=== PATIENT | male | born 2000 | race Caucasian/White ===

== ENCOUNTER 2023-04-24 21:52 | Emergency (ER) | payer OTHER, SELFPAY ==
--- NOTE | ~2023-04-24 | XR_ITS ---
EXAMINATION: XR HAND, RIGHT CLINICAL INFORMATION: Injury COMPARISON: None available. TECHNIQUE: PA, lateral, and oblique views of the right hand. FINDINGS: There is a nondisplaced fracture involving the base of the fifth metacarpal. The fracture does not appear to involve the joint space. The bones and soft tissues are otherwise unremarkable. No additional fracture. Alignment is anatomic. Joint spaces are maintained. No erosions or soft tissue calcifications. XR/XR hand RT 2V IMPRESSION: Nondisplaced fracture involving the base of the fifth metacarpal.
[2023-04-24 22:25] VITALS: BP 121/79; PULSE 79; RESP 16; TEMP 36.9; O2SAT 99; BMI 20.9
== END 2023-04-25 03:24 | disposition left against medical advice (07) ==
PROVIDERS: Emergency Provider Emergency Medicine
DX: S62.346A Nondisplaced fracture of base of fifth metacarpal bone, right hand, initial encounter for closed fracture (principal); W22.09XA Striking against other stationary object, initial encounter; Y93.89 Activity, other specified; Y92.009 Unspecified place in unspecified non-institutional (private) residence as the place of occurrence of the external cause; Y99.9 Unspecified external cause status
CPT/HCPCS: 73120; 99281; 99283

== ENCOUNTER 2024-12-11 18:11 | Inpatient (IN) | payer OTHER, SELFPAY ==
--- NOTE | 2024-12-11 | ECG_ITS ---
Test Reason : EVALUATE PROLONG QTC Blood Pressure : */* mmHG Vent. Rate : 66 BPM Atrial Rate : 66 BPM P-R Int : 120 ms QRS Dur : 104 ms QT Int : 402 ms P-R-T Axes : 32 77 69 degrees QTcB Int : 421 ms Normal sinus rhythm Normal ECG No previous ECGs available Referred By: Melvina Palmer Electronically Signed By: Nahum Davidson
--- NOTE | ~2024-12-11 | CT_ITS ---
CLINICAL HISTORY: diffuse abd pain, elevated LFTs --- Additional Notes or Special Instructions: N V @ 21:45; US @ 23:00 CT abdomen and pelvis with contrast Comparison: None provided Findings: The lung bases are clear. The gallbladder and solid organs are within normal limits. No renal stones. No bowel obstruction, pneumoperitoneum, or pneumatosis. The appendix is not visualized. Urinary bladder is decompressed/empty. The bones are intact. IMPRESSION: No acute findings. This document has been electronically signed by: Bk Baires MD, PHD on 12/12/2024 04:16:12
--- NOTE | ~2024-12-11 | US_ITS ---
CLINICAL HISTORY: diffuse abd pain, elevated LFTs US abdomen limited Comparison: None provided Findings: The visualized pancreas is normal. The aorta and inferior vena cava are normal caliber. The liver is normal in size and echotexture. Portal vein is patent with hepatopetal blood flow There is no intrahepatic bile duct dilatation. The common duct is 1.5 mm in diameter. The gallbladder is normal. There is no sonographic Wiseman sign. The main portal vein is antegrade. The right kidney is 11.9 cm in length. No ascites. IMPRESSION: 1. Normal limited abdominal ultrasound. This document has been electronically signed by: Bk Baires MD, PHD on 12/12/2024 00:27:57
[2024-12-11 18:22] VITALS: BP 145/63; PULSE 74; RESP 16; TEMP 36.7; O2SAT 98; BMI 17.3
--- NOTE | 2024-12-11 18:25 | ED.GENADULT ---
HPI - General Adult General Chief complaint: General Medical Stated complaint: abd pain, nausea, vomiting, dehydrated Time Seen by Provider: 12/11/24 21:09 Source: patient Mode of arrival: ambulatory Limitations: no limitations History of Present Illness ED Provider: Dr. Melvina Palmer HPI narrative: Patient comes to the emergency room complaining of 2 days of nausea, vomiting, diffuse abdominal discomfort. Patient states that everything started 2 days ago when he had ?a cold?. Patient states that he was trying to make himself feel better, took doses of DayQuil/NyQuil, and 2 days ago, took 10 tablets of 500 mg of acetaminophen. A proximally, this was over 50 hours ago. Patient reports that approximately 12 hours after the initial ingestion of acetaminophen, he told his mother that he ingested the acetaminophen with the intention of feeling better. Patient's mother immediately called poison control, and she was informed that given the dose that the patient took including the acetaminophen and the DayQuil/NyQuil (5650mg), and given his height and weight, he could stay at home and self hydrate. Patient admits that he drinks a lot of alcohol . According to the patient, for several weeks to months he has been drinking ?at least 3 alcoholic beverages per day. In triage the patient said 2. To me he said 3. Patient denies traveling outside of the country. Related Data Allergies Allergy/AdvReac Type Severity Reaction Status Date / Time bee pollen (bee stings) AdvReac Headache Verified 12/11/24 18:23 Review of Systems Review of Systems: Constitutional : No Weight loss, No Fever, No Chills, No Night Sweats, No Fatigue, No Malaise ENT/Mouth : No Hearing loss, No Ear Pain, 2 days ago, patient was complaining of Nasal Congestion, No Sinus Pain, No Hoarseness, No sore throat, No Rhinorrhea, No Swallowing Difficulty Eyes: No Eye Pain, No Swelling, No Redness, No Foreign Body, No Discharge, No Vision Changes Cardiovascular : No Chest Pain, No SOB, No Dyspnea on Exertion, No Orthopnea, No Edema, No Palpitations Respiratory : No Cough, No Sputum, No Wheezing, No Smoke Exposure, No Dyspnea Gastrointestinal : Complaining of nausea and vomiting, No Diarrhea, No Constipation, complaining of diffuse abdominal achiness Genitourinary : no irregular bleeding, No Dysuria, No Urinary Frequency, No Hematuria, No Urinary Incontinence, No Urgency, No Flank Pain, No Urinary Flow Changes, No Hesitancy Musculoskeletal : No joint pain, No Myalgias, No Joint Swelling Skin : No Skin Lesions, No rash Neuro : No Weakness, No Numbness, No Paresthesias, No Loss of Consciousness, No Dizziness, No Headache Psych : No Anxiety/Panic, No Depression, No SI/HI/AH/VH, No Social Issues, Heme/Lymph: No Bruising, No Bleeding,No Lymphadenopathy Endocrine : No Polyuria, No Polydipsia, No Temperature Intolerance [facility] Past Medical History Medical History Alcohol abuse Social History Social History Smoked in Last 30 Days: No Use of substances other than those prescribed or required for medical reasons: No Any prior treatment program specific to substance use: No Advance Directives: No Advance Directives Information Provided: No Physical Exam ED Exam Exam: Appearance: Alert. Oriented X3. Patient's seems uncomfortable Eyes: Pupils equal, round and reactive to light. No scleral icterus ENT: Pharynx normal. Neck: Normal inspection. Neck supple. No lymph nodes noted. No crepitus CVS: Normal heart rate and rhythm. Pulses normal. Normal S1 and S2 Respiratory: No respiratory distress. Breath sounds normal. No Wheezing. No rales Abdomen: Soft , diffuse discomfort to palpation, no rebound or guarding No rigidity. No distention. Skin: Skin warm and dry. Normal skin color. Normal skin turgor. Extremities: No lower extremity edema. No Lacerations. No Rash Neuro: Oriented X 3. No motor deficit. No sensory deficit. Moving all extremities. No slurred speech. CN 2 through 12 grossly intact Psych: calm, cooperative, normal affect Vital Signs: Vital Signs - 24 hr 12/11/24 18:22 12/11/24 19:51 12/11/24 20:27 Temperature 98.1 F 98.4 F Pulse Rate 74 87 74 Respiratory Rate 16 18 16 Blood Pressure 145/63 H 104/67 116/69 Pulse Oximetry 98 97 98 Oxygen Delivery Method Room Air Room Air Room Air 12/11/24 22:25 12/12/24 01:54 12/12/24 02:02 Temperature 98.0 F 97.9 F Pulse Rate 66 65 65 Respiratory Rate 14 20 16 Blood Pressure 119/65 108/58 L 116/65 Pulse Oximetry 97 95 98 Oxygen Delivery Method Room Air Room Air Room Air BMI result Body Mass Index 17.3 Course Course Course Narrative: This is a rapid medical exam performed by Lenny Ortiz NP: Additional HPI, ROS, PE not included below will be deferred to primary provider. Patient is a 24-year-old male presenting to the ED with complaint of headache, nausea, abdominal discomfort. States he was taking Dayquil and Nyquil on Sunday. Then Sunday night took 10 tabs of 500mg acetaminophens. Then at 1am on Sunday he woke with severe nausea and vomiting. Patient reported this to mother at 7am yesterday, she then called poison control who advised that according to his height and weight he should be able to metabolize this safely if he is eating and drinking normally. Mother concerned because he has not been eating and drinking and has still been vomiting. Also admits to having 2-3 standard drinks/beers daily. Plan: labs Medications Administered Generic Name Dose Route Start Last Admin Trade Name Freq PRN Reason Stop Dose Admin Acetylcysteine 3,000 mg/ 515 mls @ 124.924 mls/hr 12/12/24 01:35 12/12/24 02:13 Dextrose IV 12/12/24 05:42 124.92 mls/hr ONCE ONE Administration Discontinued Medications Generic Name Dose Route Start Last Admin Trade Name Freq PRN Reason Stop Dose Admin Diazepam 2.5 mg 12/11/24 23:26 12/11/24 23:43 Diazepam 10 Mg/2 Ml Cartridge IVPUSH 12/11/24 23:27 2.5 mg STAT STA Administration Sodium Chloride 2,000 mls @ 999 mls/hr 12/11/24 21:25 12/12/24 00:32 Ns IVCONT 12/11/24 23:25 Infused .Q2H1M ONE Infusion Acetylcysteine 9,000 mg/ 245 mls @ 199.187 mls/hr 12/11/24 21:42 12/12/24 00:33 Dextrose IV 12/11/24 22:55 Infused ONCE ONE Infusion Morphine Sulfate 2 mg 12/11/24 21:25 12/11/24 22:01 Morphine Sulfate 2 Mg/Ml Cartridge IVPUSH 12/11/24 21:26 2 mg ONCE ONE Administration Protocol Ondansetron HCl 4 mg 12/11/24 21:25 12/11/24 22:01 Ondansetron Hcl 4 Mg/2 Ml Vial IVPUSH 12/11/24 21:26 4 mg ONCE ONE Administration Prochlorperazine Edisylate 10 mg 12/11/24 22:55 12/11/24 23:04 Prochlorperazine Edisylate 10 Mg/2 Ml Vial IVPUSH 12/11/24 22:56 10 mg ONCE ONE Administration Medical Decision Making Medical Decision Making [facility] Narrative: My interpretation of labs: Patient's white blood cell count is 15.8, hemoglobin elevated, 19.8, hematocrit 56.3, likely dehydrated, platelets 186. Patient's INR is 1.7, elevated, patient not on blood thinners. Patient's blood gases show a pH of 7.46. No significant abnormality in patient's chemistry, lactic acid 0.9 Patient's LFTs are significantly elevated, total bili 3.0, direct bilirubin 1.1, AST 2146, ALT 2215, alkaline phosphatase 172 Patient's acetaminophen levels are negative, salicylates negative, ETOH negative Hepatitis panel pending, this levels will not be resolving today. As mentioned above, 12 hours after the initial dose of ingestion, according to the patient's mother, she called poison control and was told that the patient Could stay at home and self hydrate. At this time, patient is LFTs are significantly elevated. It has been over 50 hours since the initial dose of acetaminophen ingestion. We called poison control again, now they recommend starting IV Mucomyst IV Mucomyst has been started Fortunately, patient's arterial pH is less than 7.3, INR is less than 6.5, creatinine less than 3.4, there is no encephalopathy at all, lactic acid is less than 3.5. The only thing that we are waiting for is a phosphate level. So far, based on [facility] criteria, patient does not meet criteria for referral for liver transplant Ultrasound of the abdomen does not show any acute abnormalities. Currently, patient's blood pressure 116/65, heart rate 65, respirations 16, temperature 97.9 degrees, oxygen saturation 98% on room air. I discussed the patient with Dr. Salcedo from the Medicine team, patient being admitted Patient and his mother agree with plan Differential Diagnosis Differential Diagnoses: The differential diagnosis associated with the presentation includes (Acetaminophen accidental overdose, hepatitis) Admission/Observation Consideration of admission/observation: Escalation of care including admission/observation considered Consult Healthcare Provider Management of the patient was discussed with: Hospitalist Lab Data MDM Lab Attestation statement: I reviewed the patient's lab results. 12/11/24 18:54 12/11/24 18:54 Labs: Lab Results 12/11/24 12/11/24 12/12/24 Range/Units 18:54 21:57 01:51 WBC 15.8 H (4.8-10.8) X10*3/uL RBC 6.63 H (4.60-5.80) X10*6/uL Hgb 19.8 H (14.0-18.0) g/dl Hct 56.3 H (42.0-52.0) % MCV 84.9 (80.0-98.0) fL MCH 29.9 (27.0-33.0) pg MCHC 35.2 (31.0-36.0) g/dl RDW 11.9 (11.0-16.0) % Plt Count 196 (160-400) X10*3/uL MPV 11.0 (9.4-12.4) fL Immature Gran % (Auto) 0.5 H (0.0-0.4) % Neut % (Auto) 87.9 H (45-73) % Lymph % (Auto) 4.8 L (20-40) % [place] % (Auto) 6.0 (2-11) % Eos % (Auto) 0.2 (0-4) % Baso % (Auto) 0.6 (0-2) % Lymph # (Auto) 0.8 L (1.2-4.9) X10*3/uL [place] # (Auto) 0.9 (0.1-1.2) X10*3/uL Eos # (Auto) 0.0 (0.0-0.4) X10*3/uL Baso # (Auto) 0.1 (0.0-0.2) X10*3/uL Abs Immat Gran (auto) 0.08 H (0.00-0.03) X10*3/uL Absolute Neuts (auto) 13.9 H (2.0-8.3) x10*3/uL Absolute Nucleated RBC 0.000 (0.0-0.012) X10*3/uL Nucleated RBC % (auto) 0.0 (0.0-0.2) /100WBC PT 19.8 H (10.9-12.4) SEC INR 1.7 H (0.9-1.1) O2 Saturation % ABG pH at Pt Temp (7.35-7.45) ABG pCO2 at Pt Temp (32-45) mmHg ABG pO2 at Pt Temp (83-108) mmHg ABG HCO3 (22-26) mmol/L ABG Base Excess (Actual) mmol/L Sodium 136 (135-145) mmol/L Potassium 3.9 (3.3-5.1) mmol/L Chloride 97 (96-108) mmol/L Carbon Dioxide 25 (22-29) mmol/L Anion Gap 18 (12-20) BUN 9 (9-16) mg/dL Creatinine 0.74 (0.5-1.4) mg/dL Estim Creat Clear Calc 135.7 Estimated GFR > 60 Random Glucose 108 (60-115) mg/dL Lactic Acid 0.9 (0.5-2.0) mmol/L Calcium 9.7 (8.4-10.2) mg/dL Total Bilirubin 3.0 H (0.0-1.0) mg/dL Direct Bilirubin 1.1 H (0.0-0.5) mg/dL AST 2946 H (5-37) U/L ALT 2215 H (0-40) U/L Alkaline Phosphatase 172 H (39-117) U/L Total Protein 8.0 (6.5-8.0) g/dL Albumin 4.9 (3.5-5.0) g/dL Salicylates < 5.0 L < 5.0 L (15-30) mg/dL Acetaminophen < 3 < 3 (<30) mcg/mL Ethyl Alcohol < 10 mg/dL 12/12/24 Range/Units 02:09 WBC (4.8-10.8) X10*3/uL RBC (4.60-5.80) X10*6/uL Hgb (14.0-18.0) g/dl Hct (42.0-52.0) % MCV (80.0-98.0) fL MCH (27.0-33.0) pg MCHC (31.0-36.0) g/dl RDW (11.0-16.0) % Plt Count (160-400) X10*3/uL MPV (9.4-12.4) fL Immature Gran % (Auto) (0.0-0.4) % Neut % (Auto) (45-73) % Lymph % (Auto) (20-40) % [place] % (Auto) (2-11) % Eos % (Auto) (0-4) % Baso % (Auto) (0-2) % Lymph # (Auto) (1.2-4.9) X10*3/uL [place] # (Auto) (0.1-1.2) X10*3/uL Eos # (Auto) (0.0-0.4) X10*3/uL Baso # (Auto) (0.0-0.2) X10*3/uL Abs Immat Gran (auto) (0.00-0.03) X10*3/uL Absolute Neuts (auto) (2.0-8.3) x10*3/uL Absolute Nucleated RBC (0.0-0.012) X10*3/uL Nucleated RBC % (auto) (0.0-0.2) /100WBC PT (10.9-12.4) SEC INR (0.9-1.1) O2 Saturation 98.0 % ABG pH at Pt Temp 7.46 H (7.35-7.45) ABG pCO2 at Pt Temp 35 (32-45) mmHg ABG pO2 at Pt Temp 96 (83-108) mmHg ABG HCO3 25 (22-26) mmol/L ABG Base Excess (Actual) 2.3 mmol/L Sodium (135-145) mmol/L Potassium (3.3-5.1) mmol/L Chloride (96-108) mmol/L Carbon Dioxide (22-29) mmol/L Anion Gap (12-20) BUN (9-16) mg/dL Creatinine (0.5-1.4) mg/dL Estim Creat Clear Calc Estimated GFR Random Glucose (60-115) mg/dL Lactic Acid (0.5-2.0) mmol/L Calcium (8.4-10.2) mg/dL Total Bilirubin (0.0-1.0) mg/dL Direct Bilirubin (0.0-0.5) mg/dL AST (5-37) U/L ALT (0-40) U/L Alkaline Phosphatase (39-117) U/L Total Protein (6.5-8.0) g/dL Albumin (3.5-5.0) g/dL Salicylates (15-30) mg/dL Acetaminophen (<30) mcg/mL Ethyl Alcohol mg/dL Independent Interpretation I performed an independent interpretation of an: EKG, Ultrasound and CT Scan Interpretation: My interpretation of EKG: Normal sinus rhythm, heart rate 66, no ST segment depression or elevation, no T-wave inversion, possible U waves in V3 V4 V5, QTC 420 Radiology Impression Discussion of test interpretation with radiology: I have reviewed the radiologist's reading. Radiologist Impression: The visualized pancreas is normal. The aorta and inferior vena cava are normal caliber. The liver is normal in size and echotexture. Portal vein is patent with hepatopetal blood flow There is no intrahepatic bile duct dilatation. The common duct is 1.5 mm in diameter. The gallbladder is normal. There is no sonographic Wiseman sign. The main portal vein is antegrade. The right kidney is 11.9 cm in length. No ascites. IMPRESSION: 1. Normal limited abdominal ultrasound. Independent Historian Clinical information obtained from an independent historian. History obtained from or confirmed by: Parent External Record Review External record reviewed: Other I reviewed patient's medical record, patient has never been seen here in the emergency room before, there is no obvious psychiatric history. Patient reports now alcohol abuse history. Chronic Conditions Patient?s care impacted by: Other (Alcohol abuse) Critical Care Time Critical Care Time Critical Care Time: Yes Total Critical Care Time: 75 Attestation: I have personally provided critical care time. Time includes review of lab data, radiology results, discussion with consultants, and monitoring for potential decompensation. Intervention performed as documented. Discharge Plan Discharge Clinical Impression: Elevated LFTs, Accidental acetaminophen overdose Patient Disposition: Admitted As Inpatient Print Language: Chinese
[2024-12-11 19:04] LABS: MANUAL DIFF FLAG NO
[2024-12-11 19:20] LABS: Hemoglobin 19.8 g/dl (14.0-18.0); Imm Gran Abs Auto 0.08 X10*3/uL (0.00-0.03); Imm Gran Pct Auto 0.5 % (0.0-0.4); Lymphocytes Absolute Auto 0.8 X10*3/uL (1.2-4.9); Mean Corpuscular HGB Conc 35.2 g/dl (31.0-36.0); Mean Corpuscular Hemoglobin 29.9 pg (27.0-33.0); Mean Corpuscular Volume 84.9 fL (80.0-98.0); NRBC Abs Auto 0.000 X10*3/uL (0.0-0.012); NRBC Pct Auto 0.0 /100WBC (0.0-0.2); PLT CLUMP 1; Red Blood Count 6.63 X10*6/uL (4.60-5.80); SCAN SMEAR FLAG 1
[2024-12-11 19:32] LABS: Acetaminophen LAB < 3 mcg/mL (<30); Salicylate < 5.0 mg/dL (15-30)
[2024-12-11 19:34] LABS: Albumin Level 4.9 g/dL (3.5-5.0); Alkaline Phosphatase 172 U/L (39-117); Anion Gap 18 (12-20); Aspartate Amino Transferase 2946 U/L (5-37); Blood Urea Nitrogen 9 mg/dL (9-16); Calcium 9.7 mg/dL (8.4-10.2); Carbon Dioxide 25 mmol/L (22-29); Chloride 97 mmol/L (96-108); Creatinine Clr Calc Pharmacy 135.7; Estimated Glomerular Filt Rate > 60; Potassium 3.9 mmol/L (3.3-5.1); Sodium 136 mmol/L (135-145); Total Protein 8.0 g/dL (6.5-8.0)
[2024-12-11 19:35] LABS: Hematocrit 56.3 % (42.0-52.0)
[2024-12-11 19:36] LABS: Platelet Count 196 X10*3/uL (160-400); White Blood Count 15.8 X10*3/uL (4.8-10.8)
[2024-12-11 19:44] LABS: Alanine Aminotransferase 2215 U/L (0-40)
[2024-12-11 19:51] VITALS: BP 104/67; PULSE 87; RESP 18; TEMP 36.9; O2SAT 97
--- OUTSIDE RECORDS SUMMARY | 2024-12-11 20:25 | XMS_ITS | Encounter Summary ---
Author Organization [facility] Address [address] [place] [address] Phone Care Team Providers Care Window Unit Air Conditioning Mechanic Name Role Phone Joseluis Harper MD Primary Care Provider [phone] Encounter Details Date Type Department Care Team ([facility] st Contact Info) Description 09/28/2014 Documentation [facility] [place] Family Medicine [address] [place], [place] [id number] Family Medicine, Physician [address] [place], [place] [phone] Social History Tobacco Use Types Packs/Day Years Used Date Smoking Tobacco: Never Assessed Sex and Gender Information Value Date Recorded Sex Assigned at Not on file Legal Sex Male 4:57 PM EDT Gender Identity Not on file Sexual Orientation Not on file documented as of this encounter Plan of Treatment Not on file documented as of this encounter Visit Diagnoses Not on filedocumented in this encounter Care Teams Window Unit Air Conditioning Mechanic Relationship Specialty Start Date End Date Joseluis Harper MD [address] [facility] [place] [address] PCP - General 11/17/16 06/05/23 documented as of this encounter
--- OUTSIDE RECORDS SUMMARY | 2024-12-11 20:25 | XMS_ITS | Encounter Summary ---
Author Organization [facility] Address [address] [place] [address] Phone Care Team Providers Care Boardinghouse Keeper Name Role Phone Joseluis Harper MD Primary Care Provider Encounter Details Date Type Department Care Team ([facility] st Contact Info) Description 09/28/2014 Documentation [facility] [place] Family Medicine [address] [place], [place] [phone] Family Medicine, Physician [address] [place], [place] [phone] Social History Tobacco Use Types Packs/Day Years [...] on filedocumented in this encounter Care Teams Boardinghouse Keeper Relationship Specialty Start Date End Date Joseluis Harper MD [address] [facility] [place] [address] PCP - General 11/17/16 06/05/23 documented as of this encounter
--- OUTSIDE RECORDS SUMMARY | 2024-12-11 20:25 | XMS_ITS | Encounter Summary ---
Author Organization [facility] Address [address] [place] [address] Phone Care Team Providers Care Puppet Master Name Role Phone Joseluis Harper MD Primary Care Provider [phone] Encounter Details Date Type Department Care Team (Late st Contact Info) Description 10/08/2015 Documentation [facility] [place] [address] [place], [place] [id number] Family Medicine, Physician [address] [phone] Social History Tobacco Use Types Packs/Day Years [...] on filedocumented in this encounter Care Teams Puppet Master Relationship Specialty Start Date End Date Joseluis Harper MD [address] [facility] [place] [address] PCP - General 11/17/16 06/05/23 documented as of this encounter
--- OUTSIDE RECORDS SUMMARY | 2024-12-11 20:25 | XMS_ITS | Encounter Summary ---
Author Organization [facility] Address [address] [place] [address] Phone Care Team Providers Care Extruder Operator Name Role Phone Joseluis Harper MD Primary Care Provider [phone] Encounter Details Date Type Department Care Team ([facility] st Contact Info) Description 09/29/2014 Documentation [facility] [place] Family Medicine [address] [place], [place] [id number] Family Medicine, Physician [address] [phone] Social History Tobacco Use Types Packs/Day Years [...] on filedocumented in this encounter Care Teams Extruder Operator Relationship Specialty Start Date End Date Joseluis Harper MD [address] [place] [address] PCP - General 11/17/16 06/05/23 documented as of this encounter
--- OUTSIDE RECORDS SUMMARY | 2024-12-11 20:25 | XMS_ITS | Encounter Summary ---
Author Organization [facility] Address [address] [place] [address] Phone Care Team Providers Care Diving Fisher Name Role Phone Joseluis Harper MD Primary Care Provider [phone] Encounter Details Date Type Department Care Team ([facility] st Contact Info) Description 09/29/2014 Documentation [facility] [place] [address] [place], [place] [phone] Family Medicine, Physician [address] [phone] Social History Tobacco Use Types Packs/Day Years [...] on filedocumented in this encounter Care Teams Diving Fisher Relationship Specialty Start Date End Date Joseluis Harper MD [address] [facility] [place] [address] PCP - General 11/17/16 06/05/23 documented as of this encounter
--- OUTSIDE RECORDS SUMMARY | 2024-12-11 20:25 | XMS_ITS | Encounter Summary ---
Author Organization [facility] Address [address] [place] [address] Phone Care Team Providers Care Occupational Nurse Name Role Phone Joseulis Harper MD Primary Care Provider [phone] Encounter Details Date Type Department Care Team ([facility] st Contact Info) Description 09/28/2014 Documentation [facility] [place] Family Medicine [address] [place], [place] [phone] Family Medicine, Physician [address] [phone] Social History Tobacco Use Types Packs/Day Years [...] on filedocumented in this encounter Care Teams Occupational Nurse Relationship Specialty Start Date End Date Joseluis Harper MD [address] [facility] [place] [address] PCP - General 11/17/16 06/05/23 documented as of this encounter
--- OUTSIDE RECORDS SUMMARY | 2024-12-11 20:25 | XMS_ITS | Encounter Summary ---
Author Organization [facility] Address [address] [place] [address] Phone Care Team Providers Care Glass Designer Name Role Phone Joseluis Harper MD Primary Care Provider [phone] Encounter Details Date Type Department Care Team ([facility] st Contact Info) Description 09/28/2014 Documentation [facility] [place] Family Medicine [address] [place], [place] [phone] Family Medicine, Physician [address], [place] [phone] Social History Tobacco Use Types Packs/Day Years [...] on filedocumented in this encounter Care Teams Glass Designer Relationship Specialty Start Date End Date Joseluis Harper MD 150 [place] [address] PCP - General 11/17/16 06/05/23 documented as of this encounter
--- OUTSIDE RECORDS SUMMARY | 2024-12-11 20:25 | XMS_ITS | Encounter Summary ---
Author Organization [facility] Address [address] [place] [address] Phone Care Team Providers Care Desilverizer Name Role Phone Joseluis Harper MD Primary Care Provider [phone] Encounter Details Date Type Department Care Team ([facility] Contact Info) Description 11/23/2016 Conversion Encounter [facility] [address] [place] [address] Social History Tobacco Use Types Packs/Day Years [...] on filedocumented in this encounter Care Teams Desilverizer Relationship Specialty Start Date End Date Joseluis Harper MD 150 [place] [address] PCP - General 11/17/16 06/05/23 documented as of this encounter
--- OUTSIDE RECORDS SUMMARY | 2024-12-11 20:25 | XMS_ITS | Encounter Summary ---
Author Organization [facility] Address [address] [place] [address] Phone Care Team Providers Care Ventilated Rib Fitter Name Role Phone Joseluis Harper MD Primary Care Provider [phone] Encounter Details Date Type Department Care Team (Late st Contact Info) Description 10/08/2015 Documentation [facility] [place] [address] [place], [place] [phone] Family Medicine, Physician [address] [place], [place] [phone] Social History Tobacco Use Types Packs/Day Years [...] on filedocumented in this encounter Care Teams Ventilated Rib Fitter Relationship Specialty Start Date End Date Joseluis Harper MD [address] [place] [address] PCP - General 11/17/16 06/05/23 documented as of this encounter
--- OUTSIDE RECORDS SUMMARY | 2024-12-11 20:25 | XMS_ITS | Encounter Summary ---
Author Organization [facility] Address [address] [place] [address] Phone Care Team Providers Care Operation Agent Name Role Phone Joseluis Harper MD Primary Care Provider [phone] Encounter Details Date Type Department Care Team (Late st Contact Info) Description 12/19/2014 Documentation [facility] [place] Family Medicine [address] [place], [place] [phone] Family Medicine, Physician [address], [place] [phone] Social History Tobacco Use Types Packs/Day Years [...] on filedocumented in this encounter Care Teams Operation Agent Relationship Specialty Start Date End Date Joseluis Harper MD [address] [facility] [place] [address] PCP - General 11/17/16 06/05/23 documented as of this encounter
--- OUTSIDE RECORDS SUMMARY | 2024-12-11 20:25 | XMS_ITS | Encounter Summary ---
Author Organization [facility] Address [address] [place] [address] Phone Care Team Providers Care Manager Membership Name Role Phone Joseluis Harper MD Primary Care Provider [phone] Encounter Details Date Type Department Care Team ([facility] st Contact Info) Description 09/28/2014 Documentation [facility] [place] Family Medicine [address] [place], [place] [id number] Family Medicine, Physician [address], [place] [id number] Social History Tobacco Use Types Packs/Day Years [...] on filedocumented in this encounter Care Teams Manager Membership Relationship Specialty Start Date End Date Joseluis Harper MD [address] [facility] [address] PCP - General 11/17/16 06/05/23 documented as of this encounter
--- OUTSIDE RECORDS SUMMARY | 2024-12-11 20:25 | XMS_ITS | Encounter Summary ---
Author Organization [facility] Address [address] [place] [address] Phone Care Team Providers Care Public Policy Professor Name Role Phone Joseluis Harper MD Primary Care Provider [phone] Encounter Details Date Type Department Care Team ([facility] st Contact Info) Description 04/27/2015 Documentation [facility] [place] Medicine [address] [place], [place] [id number] Family Medicine, Physician [address], [place] [phone] Social History Tobacco Use Types Packs/Day Years [...] on filedocumented in this encounter Care Teams Public Policy Professor Relationship Specialty Start Date End Date Joseluis Harper MD [address] [facility] [address] PCP - General 11/17/16 06/05/23 documented as of this encounter
--- OUTSIDE RECORDS SUMMARY | 2024-12-11 20:25 | XMS_ITS | Encounter Summary ---
Author Organization [facility] Address [address] [place] [address] Phone Care Team Providers Care Access Tech Name Role Phone Joseluis Harper MD Primary Care Provider [phone] Encounter Details Date Type Department Care Team ([facility] st Contact Info) Description 04/27/2015 Documentation [facility] [place] Family Medicine [address] [place], [place] [phone] Family Medicine, Physician [address] [place] [phone] Social History Tobacco Use Types Packs/Day Years [...] on filedocumented in this encounter Care Teams Access Tech Relationship Specialty Start Date End Date Joseluis Harper MD 150 [place] [address] PCP - General 11/17/16 06/05/23 documented as of this encounter
--- OUTSIDE RECORDS SUMMARY | 2024-12-11 20:25 | XMS_ITS | Encounter Summary ---
Author Organization [facility] Address [address] [place] [address] Phone Care Team Providers Care Microwave Technician Name Role Phone Joseluis Harper MD Primary Care Provider [phone] Encounter Details Date Type Department Care Team ([facility] st Contact Info) Description 09/28/2014 Documentation [facility] [place] Medicine [address] [place], [place] [phone] Family Medicine, Physician [address] [place], [place] [phone] Social History Tobacco Use Types Packs/Day Years [...] on filedocumented in this encounter Care Teams Microwave Technician Relationship Specialty Start Date End Date Joseluis Harper MD [address] [place] [address] PCP - General 11/17/16 06/05/23 documented as of this encounter
--- OUTSIDE RECORDS SUMMARY | 2024-12-11 20:25 | XMS_ITS | Encounter Summary ---
Author Organization [facility] Address [address] [place] [address] Phone Care Team Providers Care Engineer Second Assistant Name Role Phone Joseluis Harper MD Primary Care Provider [phone] Encounter Details Date Type Department Care Team (Late st Contact Info) Description 12/19/2014 Documentation [facility] [place] [address] [place], [place] [phone] Family Medicine, Physician [address] [place], [place] [phone] Social History Tobacco Use Types Packs/Day Years [...] on filedocumented in this encounter Care Teams Engineer Second Assistant Relationship Specialty Start Date End Date Joseluis Harper MD [address] [place] [address] PCP - General 11/17/16 06/05/23 documented as of this encounter
--- OUTSIDE RECORDS SUMMARY | 2024-12-11 20:25 | XMS_ITS | Encounter Summary ---
Author Organization [facility] Address [address] [place] [address] Phone Care Team Providers Care Dental Service Technician Name Role Phone Joseluis Harper MD Primary Care Provider [phone] Encounter Details Date Type Department Care Team ([facility] st Contact Info) Description 09/29/2014 Documentation [facility] [place] Family Medicine [address] [place], [place] [phone] Family Medicine, Physician [address], [place] [phone] Social History Tobacco Use Types Packs/Day Years [...] on filedocumented in this encounter Care Teams Dental Service Technician Relationship Specialty Start Date End Date Joseluis Harper MD [address] [place] [address] PCP - General 11/17/16 06/05/23 documented as of this encounter
--- OUTSIDE RECORDS SUMMARY | 2024-12-11 20:25 | XMS_ITS | Clinical Summary ---
Author Organization [facility] Address [address] [place] [address] [place] [address] Phone Care Team Providers Care Place Change Roof Bolter Name Role Phone Joseluis Harper MD Primary Care Provider [phone] Allergies No known active allergies Medications No known medications Social History Tobacco Use Types Packs/Day Years Used Date Smoking Tobacco: Never Assessed Education Answer Date Recorded Are you interested in more education? Not on amaris e 07/01/2023 Are you concerned about learning? Not on file 07/01/2023 No 07/01/2023 No 07/01/2023 Digital Access Answer Date Recorded No 07/01/2023 No 07/01/2023 Reliable internet access at home? Not on file 07/01/2023 Device with a working camera? Not on file Intimate Partner Violence Answer Date R ecorded Are you denied basic needs s uch as food, clothing, or medical care? No 07/01/2023 In the past 12 months have y ou been in a relationship with a person who hurts, threatens, or tries to control you? No 07/01/2023 Are you denied basic needs s uch as food, clothing, or medical care? No 07/01/2023 In the past 12 months have y ou been in a relationship with a person who hurts, threatens, or tries to control you? No 07/01/2023 Sex and Gender Information Value Date Recorded Sex Assigned at Not on file Legal Sex Male 10:23 PM EDT Gender Identity Not on file Sexual Orientation Not on file Last Filed Vital Signs Vital Sign Reading Time Taken Comments Blood Pressure 137/88 07/01/2023 10:27 PM EDT Pulse - - Temperature 36.6 C (97.9 F) 07/01/2023 10:28 PM EDT Respiratory Rate 16 07/01/2023 10:27 PM EDT Oxygen Saturation 100% 07/01/2023 10:28 PM EDT Inhaled Oxygen Concentration - - Weight - - Height - - Body Mass Index - - Plan of Treatment Health Maintenance Due Date Last Done Comments DEPRESSION SCREENING 2014 SMOKING Hx and SMOKELESS TOB ACCO SCREENING 07/13/2015 HPV VACCINES (1 - Male 3-dos e series) 2017 MENINGOCOCCAL VACCINES (B) ( 1 of 2 - Standard) 2018 HEPATITIS C SCREENING 2020 HIV ONE-TIME SCREENING (18-6 5 YEARS) 2020 Adult Td,Tdap Booster 09/28/2024 09/28/2014 INFLUENZA VACCINE (#1) 2024 COVID-19 VACCINE (2023-2 5 season) 2024 HEPATITIS A VACCINES Aged Out No long er eligible based on patient's age to complete this topic HIB VACCINES Aged Out No longer eligi ble based on patient's age to complete this topic MENINGOCOCCAL VACCINES (ACWY) Aged Out No longer eligible based on patient's age to complete this topic PNEUMOCOCCAL VACCINES (0-49 years) Aged Out No longer eligible based on patient's age to complete this topic Medical Devices Not on file Insurance [facility] [employer] [facility] Care Teams Place Change Roof Bolter Relationship Specialty Start Date End Date Joseluis Harper MD [address] [place] [address] [place] [address] PCP - General 07/01/23 Additional Source Comments The information contained in this document represents components of the legal health record. It is not the complete legal health record.[facility]
--- OUTSIDE RECORDS SUMMARY | 2024-12-11 20:25 | XMS_ITS | Clinical Summary ---
Author Organization [facility] Address [address] [place] [address] Phone Care Team Providers Care Scout Executive Name Role Phone Unavailable Primary Care Provider Unavailabl e Allergies No known active allergies Medications Denta 5000 Plus 1.1 % cream APPLY A SMALL AMOUNT AND BRUSH ONCE AT NIGHT FOR 2 MINUTES, THEN SPIT. DO NOT RINSE YOUR MOUTH. 2 07/07/2019 Active Active Problems Problem Noted Date Diagnosed Date Adjustment disorder with depressed mood 01/12/20 20 Immunizations Immunization Administration Dates Next Due DTaP 08/22/2006, 4,01/20/2003,11/17,2002 HPV Vaccine 9 Valent 04/23/2015,12/18/2014,09/28 Hep A, ped/adol 04/23/2015,09/28/2014 Hep B, ped/adol 01/20/2003,2002,2002 HiB 07/27/2003,01/20/2003,2002 Hib (PRP-T) 2002 IPV 08/22/2006, 4,2002,09/17 Influenza, injectable, quadr ivalent, preservative free 01/15/2020,12/10/2018,12/04/2016,12/18 MMR 08/22/2006,07/27/2003 Meningococcal Conj (Menactra) MCV4P 12/10/2018,0 09/28/2014 Pneumococcal Conjugate 2002 Pneumococcal Conjugate 13-Valent 07/27/2003,01/07,2002 Tdap 09/28/2014 Varicella 08/22/2006,07/27/2003 Family History Relation Name Status Comments Father Father: Hypertconner hernandezion, Alcoholism Half-Sister Consuelo Mcdonnell Half sister (M) : Asthma Mother Melvina Garvin Alive Mother: Alive and well Social History Tobacco Use Types Packs/Day Years Used Date Smoking Tobacco: Never Smokeless Tobacco: Never Comments:Never smoker Hunger/Food Answer Date Recorded In the last 12 months, did y ou or your family ever eat less than you felt you should because there wasn't enough money for food? No 01/15/2020 Stable Housing Answer Date Recorded Are you worried that in the next 2 months you may not have stable housing? No 01/15/2020 Transportation Concerns Answer Date Rec orded In the last 12 months, have you or your family ever had to go without healthcare because you didn't have a way to get there? No 01/15/2020 Hazards in Home Answer Date Recorded Think about the place you li ve. Do you have problems with any of the following? Pests (mice or roaches), mold, no/not working smoke detectors, water leaks, no window guards. No 2019 Financing Utilities Answer Date Recorde d In the last 12 months, has t he electric, gas, oil, or water company threatened to shut off your services in your home? No 01/15/2020 Safety at Home Answer Date Recorded Are you or your family worried about feeling saf e in your home? No 01/15/2020 Outside Support Answer Date Recorded Do you feel that you need mo re support from other people or programs to help you care for yourself or your family? No 01/15/2020 Understanding Health Concerns Answer Da te Recorded Do you need help understandi ng your or your child's healthcare needs (diagnosis, medications, plan, etc.)? No 01/15/2020 Financing Health Concerns Answer Date R ecorded In the last 12 months, was t here a time when your child needed to see a doctor or get medications or supplies but could not because of cost? No 01/15/2020 Missing School or Work Answer Date Familia rded Did you or your child miss s chool or work because of a health problem that could have been avoided? No 01/15/2020 Sex and Gender Information Value Date Recorded Sex Assigned at Not on file Legal Sex Male 4:57 PM EDT Gender Identity Not on file Sexual Orientation Not on file Last Filed Vital Signs Vital Sign Reading Time Taken Comments Blood Pressure 126/72 06/22/2020 3:20 PM EDT Pulse 92 06/22/2020 3:20 PM EDT Temperature 36.1 C (96.9 F) 06/22/2020 3:20 PM EDT Respiratory Rate 16 12/10/2018 9:08 AM EDT Oxygen Saturation - - Inhaled Oxygen Concentration - - Weight 57.5 kg (126 lb 12.8 oz) 06/22/2020 3:20 PM EDT Height 174 cm (5' 8.5 ) 06/22/2020 3:20 PM EDT Body Mass Index 19 06/22/2020 3:20 PM EDT Plan of Treatment Health Maintenance Due Date Last Done Comments Men B Vaccine (1 of 2 - Standard) 2018 DTaP,Tdap,and Td Vaccines (7 - Td or Tdap) 09/28/2024 09/28/2014, 08/22/2006, 10/27/2003, Additional history exists Influenza Vaccines (#1) 2024 01/15/20, 12/10/2018, 12/04/2016, Additional history exists COVID-19 Vaccine (2023-2 5 season) 2024 Hepatitis B Vaccines Completed 01/20/2003, 2002, 2002 HIB Vaccines Completed 07/27/2003, 01/07, 2002, Additional history exists Pneumococcal Vaccine Completed 07/27/2003, 01/20/2003, 2002, Additional history exists IPV Vaccines Completed 08/22/2006, 10/08, 2002, Additional history exists MMR Vaccines Completed 08/22/2006, 07/27/2003 Varicella Vaccines Completed 08/22/2006, 07/27/2003 HPV Vaccines Completed 04/23/2015, 12/08, 09/28/2014 Hepatitis A Vaccines Completed 04/23/2015, 09/29/19 15 Meningococcal Vaccine Completed 12/10/2018, 015
[2024-12-11 20:27] VITALS: BP 116/69; PULSE 74; RESP 16; O2SAT 98
[2024-12-11 22:16] LABS: INTERNATIONAL NORM RATIO 1.7 (0.9-1.1); Prothrombin Time 19.8 SEC (10.9-12.4)
[2024-12-11 22:25] VITALS: BP 119/65; PULSE 66; RESP 14; TEMP 36.7; O2SAT 97
[2024-12-11 22:26] LABS: Salicylate < 5.0 mg/dL (15-30)
[2024-12-11 22:32] LABS: Acetaminophen LAB < 3 mcg/mL (<30)
[2024-12-11] MEDS: DEXTROSE 5% IV (22:33)
[2024-12-11] MEDS: ACETYLCYSTEINE IV (22:33)
[2024-12-11] MEDS: diazePAM 10 MG/2 ML CARTRIDGE 2.5 MG IVPUSH (23:43)
[2024-12-12] VITALS (13 sets, daily range): BP systolic 100–140; BP diastolic 58–88; PULSE 54–83; RESP 12–20; TEMP 36.4–36.9; O2SAT 95–99; BMI 18.6
[2024-12-12 02:13] LABS: ABG HCO3 25 mmol/L (22-26); ABG O2 % Saturation 98.0 %
[2024-12-12] MEDS: ACETYLCYSTEINE IV ×3 (02:13→23:18)
[2024-12-12] MEDS: DEXTROSE 5% IV ×3 (02:13→23:18)
[2024-12-12 02:32] LABS: ABG Refer to POC result
[2024-12-12] MEDS: iohexoL 350 MG/ML 100 ML INFUS..BTL 85 ML IV (02:56)
[2024-12-12 02:57] LABS: Cannabinoid Screen Urine POSITIVE (Not Detect)
[2024-12-12 03:03] LABS: Appearance Urine Clear; Glucose Urine UA Negative (Negative); PH 6.0 (5.0-9.0); Specific Gravity - Urine 1.020 (1.005-1.025); UMIC TRIGGER UACC YES
--- NOTE | 2024-12-12 03:40 | P.HPHOSP_ITS ---
History of Present Illness Date of Service: 12/12/24 Attending physician on admission: Jesus Lewis Chief Complaint: N/V Pt is a 24 yo male with past medical history regular alcohol use 2-3 beers per day, marijuana use coming in to ED for persistent N/V, decreased urinary output. Patient initially reports that he took DayQuil and NyQuil since last Sunday through Sunday for cold-like symptoms. Those symptoms have since resolved. Patient developed tooth pain in the upper right molar area on Sunday and the pain was unbearable and patient took 10 500 mg tablets at once to relieve the pain. Patient also took DayQuil at that time as well. Patient denies taking any Motrin or other NSAIDs. Patient awakened on Sunday with excessive nausea and multiple episodes of vomiting. Patient's mother who is a nurse that works at [facility] was updated on medications that patient took and called poison control Sunday morning. Initially they were told based on patient's weight and height he could hydrate at home and recover. Patient then developed the decreased urinary output. Patient also having some mild abdominal tenderness in the right upper quadrant. Patient was brought into the emergency department for further evaluation. Patient currently denies any cold-like symptoms. In addition patient states he drinks anywhere from 2-3 beers per day and has not been able to stop. Patient has used alcohol at least 2-3 years. Patient also uses marijuana intermittently. Patient denies use of illicit drugs or IV drug abuse history. Patient denies any SI, HI, AH or VH currently. Patient denies any history of depression or anxiety. Patient was treated with Mucomyst in the ED. patient currently NPO. In ED provider's notes it states patient is not a candidate for liver transplant. Tylenol level is currently less than 3. Labs done in the ED identified a leukocytosis of 15.8, H&H 19.8 and 56.3, lactic acid 0.9. Phosphorus 1.9, total bilirubin 3.0 direct bilirubin 1.1. AST 2946 and ALT is 2215 with an alk-phos of 172. CT of the abdomen is currently pending. Per emergency department provider's calculation, patient took over 5650 mg of Tylenol total since Sunday. Patient reports that his tooth pain persists and knows that it needs to be addressed with a dentist. Patient denies any current fever, chills, nausea or vomiting. Patient is not having chest pain or shortness of breath at rest or with exertion. Patient being admitted with accidental Tylenol overdose and tooth pain/ dental infection. Review of Systems 2 Review of Systems: Patient currently reports mild abdominal tenderness in the right upper quadrant. Patient also reports right upper molar tooth pain that started this past Sunday. Patient denies any nausea or vomiting. Patient is not having any diarrhea or constipation issues. [facility] Medical History Marijuana use Alcohol abuse Cognitive capacity: Alert and orientated x3 Functional capacity: independent ambulation Social History (Updated 12/12/24 @ 04:31 by LISBETH Ordoñez-) Alcohol intake: current Alcohol intake frequency: 3 or more drinks per day Alcohol type: beer Comment: 2-3 beers per day no hard liquor Smoked in Last 30 Days: No Use of substances other than those prescribed or required for medical reasons: No Substance Use Type: Marijuana Any prior treatment program specific to substance use: No Advance Directives: No Advance Directives Information Provided: No Ebola Risk: Travel/Contact With Anyone From Affected Area/s: No Has Patient Experienced Ebola Symptoms: No Meds Allergies Allergy/AdvReac Type Severity Reaction Status Date / Time bee pollen (bee stings) AdvReac Headache Verified 12/11/24 18:23 Active Medications: Current Medications Acetylcysteine 3,000 mg/ (Dextrose) 515 mls @ 124.924 mls/hr IV ONCE ONE Stop: 12/12/24 05:42 Last Admin: 12/12/24 02:13 Dose: 124.92 mls/hr Physical Exam 2 Vital Signs and Narrative: Vital Signs: Last Vital Signs Temp 97.9 F 12/12/24 01:54 Pulse 65 12/12/24 02:02 Resp 16 12/12/24 02:02 BP 116/65 12/12/24 02:02 Pulse Ox 98 12/12/24 02:02 O2 Del Method Room Air 12/12/24 02:02 BMI result Body Mass Index 17.3 Alert and orientated X3, able to give good history. Neuro: CN II-X11 intact, no deficits, visual acuity intact EYES: PERRLA, EOM intact, sclerae nonicteric, conjunctiva pink ENT: hearing intact, no issues with swallowing, uvula midline, lips moist, nares patent no epistaxis Cardiac: S1 S2 RRR, no murmur, no JVD, no edema in Lower ext Pulmonary: lungs clear to auscultation B Abdominal: BS active in all 4 quadrants, no guarding, mild tenderness RUQ, no rebounding MSK: strength 5/5 upper and lower extremities : no CVA tenderness no bladder distension Extremities: no edema in lower extremities, PT and DP pulses palpable +2 Psych: mood stable, judgement and insight good Skin: intact Results Labs 12/11/24 18:54 12/11/24 18:54 Labs: Laboratory Results - last 24 hr 12/11/24 12/11/24 12/12/24 18:54 21:57 01:51 MCV 84.9 MCH 29.9 MCHC 35.2 RDW 11.9 Plt Count 196 MPV 11.0 Immature Gran % (Auto) 0.5 H Neut % (Auto) 87.9 H Lymph % (Auto) 4.8 L [place] % (Auto) 6.0 Eos % (Auto) 0.2 Baso % (Auto) 0.6 Lymph # (Auto) 0.8 L [place] # (Auto) 0.9 Eos # (Auto) 0.0 Baso # (Auto) 0.1 Abs Immat Gran (auto) 0.08 H Absolute Neuts (auto) 13.9 H Absolute Nucleated RBC 0.000 Nucleated RBC % (auto) 0.0 PT 19.8 H INR 1.7 H O2 Saturation ABG pH at Pt Temp ABG pCO2 at Pt Temp ABG pO2 at Pt Temp ABG HCO3 ABG Base Excess (Actual) Anion Gap 18 Estim Creat Clear Calc 135.7 Estimated GFR > 60 Random Glucose 108 Lactic Acid 0.9 Calcium 9.7 Phosphorus 1.9 L Total Bilirubin 3.0 H Direct Bilirubin 1.1 H AST 2946 H ALT 2215 H Alkaline Phosphatase 172 H Total Protein 8.0 Albumin 4.9 Urine Color Urine Appearance Urine pH Ur Specific [place] Urine Protein Urine Glucose (UA) Urine Ketones Urine Blood Urine Nitrite Ur Leukocyte Esterase Urine RBC Urine WBC Ur Squamous Epith Cells Urine Bacteria Hyaline Casts Salicylates < 5.0 L < 5.0 L Urine Opiates Screen Ur Buprenorphine Scrn Ur Oxycodone Screen Urine Methadone Screen Urine Fentanyl Screen Acetaminophen < 3 < 3 Ur Barbiturates Screen Ur Phencyclidine Scrn Ur Amphetamines Screen U Benzodiazepines Scrn Urine Cocaine Screen U Marijuana (THC) Screen Ethyl Alcohol < 10 12/12/24 12/12/24 02:09 02:38 MCV MCH MCHC RDW Plt Count MPV Immature Gran % (Auto) Neut % (Auto) Lymph % (Auto) [place] % (Auto) Eos % (Auto) Baso % (Auto) Lymph # (Auto) [place] # (Auto) Eos # (Auto) Baso # (Auto) Abs Immat Gran (auto) Absolute Neuts (auto) Absolute Nucleated RBC Nucleated RBC % (auto) PT INR O2 Saturation 98.0 ABG pH at Pt Temp 7.46 H ABG pCO2 at Pt Temp 35 ABG pO2 at Pt Temp 96 ABG HCO3 25 ABG Base Excess (Actual) 2.3 Anion Gap Estim Creat Clear Calc Estimated GFR Random Glucose Lactic Acid Calcium Phosphorus Total Bilirubin Direct Bilirubin AST ALT Alkaline Phosphatase Total Protein Albumin Urine Color Dark Yellow Urine Appearance Clear Urine pH 6.0 Ur Specific [place] 1.020 Urine Protein 30 (1+) H Urine Glucose (UA) Negative Urine Ketones 15 Urine Blood Negative Urine Nitrite Negative Ur Leukocyte Esterase Negative Urine RBC 0-2 Urine WBC 0-5 Ur Squamous Epith Cells 0-2 Urine Bacteria None Seen Hyaline Casts 0-2 Salicylates Urine Opiates Screen POSITIVE H Ur Buprenorphine Scrn Not Detected Ur Oxycodone Screen Not Detected Urine Methadone Screen Not Detected Urine Fentanyl Screen Not Detected Acetaminophen Ur Barbiturates Screen Not Detected Ur Phencyclidine Scrn Not Detected Ur Amphetamines Screen Not Detected U Benzodiazepines Scrn Not Detected Urine Cocaine Screen Not Detected U Marijuana (THC) Screen POSITIVE H Ethyl Alcohol ECG Attestation: I personally reviewed and interpreted this ECG as follows: (NSR no ischemic changes ) Prior ECG tracings: available for review Imaging Radiologist's Impressions: US ABD Findings: The visualized pancreas is normal. The aorta and inferior vena cava are normal caliber. The liver is normal in size and echotexture. Portal vein is patent with hepatopetal blood flow There is no intrahepatic bile duct dilatation. The common duct is 1.5 mm in diameter. The gallbladder is normal. There is no sonographic Wiseman sign. The main portal vein is antegrade. The right kidney is 11.9 cm in length. No ascites. IMPRESSION: 1. Normal limited abdominal ultrasound. CT ABD Findings: The lung bases are clear. The gallbladder and solid organs are within normal limits. No renal stones. No bowel obstruction, pneumoperitoneum, or pneumatosis. The appendix is not visualized. Urinary bladder is decompressed/empty. The bones are intact. IMPRESSION: No acute findings. Assessment and Plan (1) Accidental acetaminophen overdose: Qualifiers: Encounter type: initial encounter Qualified Code(s): T39.1X1A - Poisoning by 4-Aminophenol derivatives, accidental (unintentional), initial encounter Status: Acute (2) Elevated LFTs: Status: Acute (3) Tooth pain: Status: Acute Plan Pt is a 24 yo male with past medical history regular alcohol use 2-3 beers per day, marijuana use coming in to ED for persistent N/V, decreased urinary output. The treatment initiated in the ED for accidental acetaminophen overdose secondary to tooth pain that developed this past Sunday. Prior to that patient had cold-like symptoms and started using DayQuil and NyQuil excessively as well to feel better. Total Tylenol use 5650 mgs. Patient did receive Mucomyst and current Tylenol level is less than 3. Accidental acetaminophen overdose Mucomyst initiated, pt will start 3rd bag 0630 for 16 hours AM labs requested by Poison control LFTs, ammonia, Coags Labs requested by poison control for 8PM 09/05 Acetaminophen level and LFTs Tylenol level is now less than 3 Hemodynamics are stable Education provided on use of [id number] medications and the dangers associated with overuse Pt denies SI, no indication for psychiatric consult at this time - was trying to resolve tooth pain Elevated LFTs with history of daily alcohol use GI consulted CIWA initiated No indication for phenobarbitol at this time No history of seizures with withdrawal or withdrawal symptoms in the past Addictions consulted Ultrasound and CT negative for any acute or chronic findings to include pancreatitis, hepatic steatosis, cirrhosis Avoid hepatotoxic medications Thiamine and folic acid ordered Tooth pain/possible infection Patient started on amoxicillin noting leukocytosis with no fever Benzocaine gel PRN No Tylenol No evidence of suborbital swelling or obvious abscess Follow up with dentist on discharge Erythrocytosis Recheck CBC in the a.m. Hydration has been provided Further workup if indicated DVT prophylaxis: Low risk not indicated MED REC pending - patient does not currently take any prescription medications at home Full code status Quality Stroke Does the patient have a stroke diagnosis?: No Reason for No Anti-thrombotic by Day Two: Contraindicated VTE Prior VTE?: No VTE Risk Level:: Medical - moderate - high VTE Device Contraindication: N/A - Device Ordered VTE Drug Contraindication: Treatment Not Indicated
[2024-12-12 04:30] LABS: HBS Num1 0.27 mIU/mL (0-7.99); HBc Num1 0.14 S/CO (0.00-0.79); HBsAGNum1 0.43 S/CO (0.00-0.99); Hepatitis A Antibody IgM 0.26 Index (0-0.79); Hepatitis B Surface Antigen Negative (Negative); ~HepC Num1 0.14 S/CO (0.00-0.79); ~Hepatitis A Antibody IgM Nonreactive (Nonreactive); ~Hepatitis B Surface Antibody NONREACTIVE (Nonreactive); ~Hepatitis C Antibody Nonreactive (Nonreactive)
[2024-12-12 05:22] LABS: MANUAL DIFF FLAG NO
[2024-12-12 05:24] LABS: Hematocrit 51.3 % (42.0-52.0); Hemoglobin 17.3 g/dl (14.0-18.0); Imm Gran Abs Auto 0.04 X10*3/uL (0.00-0.03); Imm Gran Pct Auto 0.4 % (0.0-0.4); Lymphocytes Absolute Auto 0.9 X10*3/uL (1.2-4.9); Mean Corpuscular HGB Conc 33.7 g/dl (31.0-36.0); Mean Corpuscular Hemoglobin 29.4 pg (27.0-33.0); Mean Corpuscular Volume 87.2 fL (80.0-98.0); NRBC Abs Auto 0.000 X10*3/uL (0.0-0.012); NRBC Pct Auto 0.0 /100WBC (0.0-0.2); Platelet Count 167 X10*3/uL (160-400); Red Blood Count 5.88 X10*6/uL (4.60-5.80); White Blood Count 10.6 X10*3/uL (4.8-10.8)
[2024-12-12] MEDS: Sodium,Potassium Phosphates POWD.PACK 1 PACKET PO ×4 (05:30→20:50)
[2024-12-12 05:32] LABS: Ammonia 105 umol/L (13-55)
[2024-12-12 05:39] LABS: INTERNATIONAL NORM RATIO 1.7 (0.9-1.1); Prothrombin Time 20.0 SEC (10.9-12.4)
[2024-12-12 05:41] LABS: Partial Thromboplastin Time 30.0 SEC (26.7-34.1)
[2024-12-12 05:51] LABS: Albumin Level 3.6 g/dL (3.5-5.0); Alkaline Phosphatase 115 U/L (39-117); Anion Gap 11 (12-20); Aspartate Amino Transferase 4654 U/L (5-37); Blood Urea Nitrogen 9 mg/dL (9-16); Carbon Dioxide 26 mmol/L (22-29); Chloride 102 mmol/L (96-108); Creatinine Clr Calc Pharmacy 152.2; Estimated Glomerular Filt Rate > 60; Gamma Glutamyl Transpeptidase 148 U/L (11-51); Magnesium 2.0 mg/dL (1.6-2.6); Potassium 3.2 mmol/L (3.3-5.1); Sodium 136 mmol/L (135-145); Total Protein 5.9 g/dL (6.5-8.0)
[2024-12-12 06:08] LABS: Alanine Aminotransferase 3011 U/L (0-40); Calcium 8.2 mg/dL (8.4-10.2)
[2024-12-12 06:32] LABS: Ferritin > 1676 ng/mL (20-250)
--- NOTE | 2024-12-12 07:18 | PC.NURSE ---
repeat lft and INR at approx 2100 per poison control.
[2024-12-12] MEDS: Thiamine HCL 100 MG in 0.9 % Sodium Chloride 100 ML 202 MG IV (07:48)
[2024-12-12] MEDS: 0.9 % Sodium Chloride Flush 3 ML SYRINGE IVFLUSH ×2 (07:49→20:50)
--- NOTE | 2024-12-12 08:01 | PC.NURSE ---
Assumed care of pt at 0645. Pt resting quietly in room. A/ox4. Clear BBS. Sinus walter on the monitor 50s. Denies n/v/d. Acetylcysteine gtt verified against MAR and running. 2nd PIV placed- 20gLFA. Ambulatory to bathroom. NAD at this time. Admit bed pending. Call khan within reach
--- NOTE | 2024-12-12 08:17 | PHA.MEDREC ---
Addendum entered by Rin Arroyo RPh 12/12/24 09:26: [facility] Reviewed Original Note: Pharmacy Consult ? Medication Reconciliation Pharmacy has completed the medication reconciliation. Spoke with pt family at bedside (pt sleeping at time of interaction) and family confirmed pt is not taking any medications at this time.
--- NOTE | 2024-12-12 11:18 | PC.NURSE ---
Poison control called, requesting repeat LFTs and Ammonia. notified. Labs ordered.
--- NOTE | 2024-12-12 11:36 | P.PNIM_ITS ---
Subjective Subjective Date of Service: 12/12/24 Interval History: c/o some anxiety, no abd pain/N/V, no confusion Review of Systems Review of Systems: Yes all other systems are reviewed and are negative Physical Exam 2 Vital Signs: Vital Signs: Last Vital Signs Temp 98.4 F 12/12/24 10:00 Pulse 67 12/12/24 10:00 Resp 13 12/12/24 10:00 BP 119/72 12/12/24 10:00 Pulse Ox 99 12/12/24 10:00 O2 Del Method Room Air 12/12/24 10:00 BMI result Body Mass Index 17.3 Gen: in no acute distress HEENT: sclera anicteric, moist mucus membranes Neck: supple Lungs: clear to auscultation bilaterally Heart: regular rate and rhythm, no murmurs Abd: soft, non-tender, non-distended Ext: no edema Skin: warm/well-perfused Neuro: alert and oriented x3, no focal findings, no asterixis Psych: appropriate affect Objective Data Active Medications Acetaminophen (Acetaminophen 325 Mg Tablet) 650 mg PO Q6H PRN PRN Reason: Pain, Mild 1-3,fever,headache Amoxicillin (Amoxicillin 500 Mg Capsule) 500 mg PO Q8H BECKY Stop: 12/19/24 04:59 Last Admin: 12/12/24 05:30 Dose: 500 mg Documented By: TAJ Benzocaine (Benzocaine 20 % Oral Gel 9 Gm Tube) 1 appl MUCOUS MEM QID PRN; Protocol PRN Reason: Pain, Mild (Pain Scale 1-3) Acetylcysteine 6,000 mg/ (Dextrose) 1,030 mls @ 62.461 mls/hr IV ONCE ONE Stop: 12/12/24 22:59 Last Admin: 12/12/24 06:28 Dose: 62.46 mls/hr Documented By: TAJ Folic Acid 1 mg/ Sodium (Chloride) 50.2 mls @ 100.4 mls/hr IV DAILY [facility] Last Infusion: 12/12/24 08:48 Dose: Infused Documented By: ABHAY Thiamine HCl 100 mg/ Sodium (Chloride) 101 mls @ 202 mls/hr IV DAILY [facility] Last Infusion: 12/12/24 08:48 Dose: Infused Documented By: ABHAY Potassium Phos/Sodium Phos (Sodium,Potassium Phosphates Powd.Pack) 1 packet PO QID [facility] Last Admin: 12/12/24 05:30 Dose: 1 packet Documented By: TAJ Sodium Chloride (0.9 % Sodium Chloride Flush 3 Ml Syringe) 3 ml IVFLUSH QSHIFT [facility] Last Admin: 12/12/24 07:49 Dose: 3 ml Documented By: ABHAY Labs 12/12/24 05:09 12/12/24 05:09 Labs: Laboratory Results - last 24 hr 12/11/24 12/11/24 12/12/24 18:54 21:57 01:51 MCV 84.9 MCH 29.9 MCHC 35.2 RDW 11.9 Plt Count 196 MPV 11.0 Immature Gran % (Auto) 0.5 H Neut % (Auto) 87.9 H Lymph % (Auto) 4.8 L [place] % (Auto) 6.0 Eos % (Auto) 0.2 Baso % (Auto) 0.6 Lymph # (Auto) 0.8 L [place] # (Auto) 0.9 Eos # (Auto) 0.0 Baso # (Auto) 0.1 Abs Immat Gran (auto) 0.08 H Absolute Neuts (auto) 13.9 H Absolute Nucleated RBC 0.000 Nucleated RBC % (auto) 0.0 PT 19.8 H INR 1.7 H APTT O2 Saturation ABG pH at Pt Temp ABG pCO2 at Pt Temp ABG pO2 at Pt Temp ABG HCO3 ABG Base Excess (Actual) Anion Gap 18 Estim Creat Clear Calc 135.7 Estimated GFR > 60 Random Glucose 108 Lactic Acid 0.9 Calcium 9.7 Phosphorus 1.9 L Magnesium Ferritin Total Bilirubin 3.0 H Direct Bilirubin 1.1 H GGT AST 2946 H ALT 2215 H Alkaline Phosphatase 172 H Ammonia Total Protein 8.0 Albumin 4.9 Urine Color Urine Appearance Urine pH Ur Specific [place] Urine Protein Urine Glucose (UA) Urine Ketones Urine Blood Urine Nitrite Ur Leukocyte Esterase Urine RBC Urine WBC Ur Squamous Epith Cells Urine Bacteria Hyaline Casts Salicylates < 5.0 L < 5.0 L Urine Opiates Screen Ur Buprenorphine Scrn Ur Oxycodone Screen Urine Methadone Screen Urine Fentanyl Screen Acetaminophen < 3 < 3 Ur Barbiturates Screen Ur Phencyclidine Scrn Ur Amphetamines Screen U Benzodiazepines Scrn Urine Cocaine Screen U Marijuana (THC) Screen Ethyl Alcohol < 10 Hepatitis A IgM Ab Nonreactive Hep Bs Antigen Negative Hep Bs Antibody NONREACTIVE Hep B Core Total Ab Nonreactive Hepatitis C Ab (EIA) Nonreactive 12/12/24 12/12/24 12/12/24 02:09 02:37 02:38 MCV MCH MCHC RDW Plt Count MPV Immature Gran % (Auto) Neut % (Auto) Lymph % (Auto) [place] % (Auto) Eos % (Auto) Baso % (Auto) Lymph # (Auto) [place] # (Auto) Eos # (Auto) Baso # (Auto) Abs Immat Gran (auto) Absolute Neuts (auto) Absolute Nucleated RBC Nucleated RBC % (auto) PT INR APTT O2 Saturation 98.0 ABG pH at Pt Temp 7.46 H ABG pCO2 at Pt Temp 35 ABG pO2 at Pt Temp 96 ABG HCO3 25 ABG Base Excess (Actual) 2.3 Anion Gap Estim Creat Clear Calc Estimated GFR Random Glucose Lactic Acid Calcium Phosphorus Magnesium Ferritin Total Bilirubin Direct Bilirubin GGT AST ALT Alkaline Phosphatase Ammonia Total Protein Albumin Urine Color Dark Yellow Urine Appearance Clear Urine pH 6.0 Ur Specific [place] 1.020 Urine Protein 30 (1+) H Urine Glucose (UA) Negative Urine Ketones 15 Urine Blood Negative Urine Nitrite Negative Ur Leukocyte Esterase Negative Urine RBC 0-2 Urine WBC 0-5 Ur Squamous Epith Cells 0-2 Urine Bacteria None Seen Hyaline Casts 0-2 Salicylates Urine Opiates Screen POSITIVE H Ur Buprenorphine Scrn Not Detected Ur Oxycodone Screen Not Detected Urine Methadone Screen Not Detected Urine Fentanyl Screen Not Detected Acetaminophen Cancelled Ur Barbiturates Screen Not Detected Ur Phencyclidine Scrn Not Detected Ur Amphetamines Screen Not Detected U Benzodiazepines Scrn Not Detected Urine Cocaine Screen Not Detected U Marijuana (THC) Screen POSITIVE H Ethyl Alcohol Hepatitis A IgM Ab Hep Bs Antigen Hep Bs Antibody Hep B Core Total Ab Hepatitis C Ab (EIA) 12/12/24 05:09 MCV 87.2 MCH 29.4 MCHC 33.7 RDW 11.8 Plt Count 167 MPV 10.5 Immature Gran % (Auto) 0.4 Neut % (Auto) 85.7 H Lymph % (Auto) 8.2 L [place] % (Auto) 5.0 Eos % (Auto) 0.2 Baso % (Auto) 0.5 Lymph # (Auto) 0.9 L [place] # (Auto) 0.5 Eos # (Auto) 0.0 Baso # (Auto) 0.1 Abs Immat Gran (auto) 0.04 H Absolute Neuts (auto) 9.1 H Absolute Nucleated RBC 0.000 Nucleated RBC % (auto) 0.0 PT 20.0 H INR 1.7 H APTT 30.0 O2 Saturation ABG pH at Pt Temp ABG pCO2 at Pt Temp ABG pO2 at Pt Temp ABG HCO3 ABG Base Excess (Actual) Anion Gap 11 L Estim Creat Clear Calc 152.2 Estimated GFR > 60 Random Glucose 149 H Lactic Acid 1.8 Calcium 8.2 L D Phosphorus 2.0 L Magnesium 2.0 Ferritin > 1676 H Total Bilirubin 2.0 H Direct Bilirubin GGT 148 H AST 4654 H ALT 3011 H Alkaline Phosphatase 115 Ammonia 105 H Total Protein 5.9 L Albumin 3.6 Urine Color Urine Appearance Urine pH Ur Specific [place] Urine Protein Urine Glucose (UA) Urine Ketones Urine Blood Urine Nitrite Ur Leukocyte Esterase Urine RBC Urine WBC Ur Squamous Epith Cells Urine Bacteria Hyaline Casts Salicylates Urine Opiates Screen Ur Buprenorphine Scrn Ur Oxycodone Screen Urine Methadone Screen Urine Fentanyl Screen Acetaminophen Ur Barbiturates Screen Ur Phencyclidine Scrn Ur Amphetamines Screen U Benzodiazepines Scrn Urine Cocaine Screen U Marijuana (THC) Screen Ethyl Alcohol Hepatitis A IgM Ab Hep Bs Antigen Hep Bs Antibody Hep B Core Total Ab Hepatitis C Ab (EIA) Assessment and Plan (1) Accidental acetaminophen overdose: Status: Acute Plan d1, 24yo M presenting after unintentional APAP overdose unintentional APAP overdose - continue NAC IV infusion, Poison Control following, follow LFTs, GI consult pending hypoK hypoPO4 - replete PO, recheck levels in AM tooth pain/infection - amoxicillin 12/12-, benzocaine, dental follow-up VTE ppx - SCDs dispo - eventual home In my clinical judgment, the patient requires continued inpatient hospitalization for the following reasons: IV NAC Total time managing care of this patient today: 35 minutes. Quality Stroke Does the patient have a stroke diagnosis?: No Reason for No Anti-thrombotic by Day Two: Contraindicated VTE Prior VTE?: No VTE Risk Level:: Medical - moderate - high VTE Device Contraindication: N/A - Device Ordered VTE Drug Contraindication: Treatment Not Indicated
--- NOTE | 2024-12-12 12:09 | MHC.CM.PN ---
CM met with Patient and his Girlfriend at bedside, in the ED. Patient's goal is home self care and CM has initiated and will follow for dc planning. Patient does not have a PCP(brochure to be provided).Patient lives in an apartment with his Girlfriend and he is functionally independent.
[2024-12-12] MEDS: Benzocaine 20 % Oral Gel 9 GM TUBE 1 APPL MUCOUS MEM (12:18)
[2024-12-12 12:31] LABS: Ammonia 103 umol/L (13-55)
[2024-12-12 12:44] LABS: Albumin Level 3.4 g/dL (3.5-5.0); Alkaline Phosphatase 80 U/L (39-117); Aspartate Amino Transferase 4130 U/L (5-37); Total Protein 5.6 g/dL (6.5-8.0)
[2024-12-12 12:57] LABS: Alanine Aminotransferase 3080 U/L (0-40)
--- NOTE | 2024-12-12 15:48 | P.EN_ITS ---
Event Note Date of Service: 12/12/24 Event Note: Addiction consult placed for patient medically admitted with accidental acetaminophen overdose and significantly elevated liver enzymes Consult requested as patient reported drinking 2-3 drinks per day Chart reviewed--no concern for withdrawal at this time Seen briefly by motion graphics artist, patient sleeping comfortably--no diaphoresis or restlessness noted. UDS +thc ETOH <10 Plan: motion graphics artist to follow up in AM CIWA in place--VS WNL since admission Time Spent With Patient Time: Total time managing care of this patient today ____ minutes.
[2024-12-12 21:25] LABS: Acetaminophen LAB < 3 mcg/mL (<30)
[2024-12-12 21:30] LABS: Albumin Level 3.6 g/dL (3.5-5.0); Alkaline Phosphatase 117 U/L (39-117); Aspartate Amino Transferase 2649 U/L (5-37); Total Protein 6.1 g/dL (6.5-8.0)
[2024-12-12 21:42] LABS: Alanine Aminotransferase 2773 U/L (0-40)
[2024-12-13] VITALS (9 sets, daily range): BP systolic 93–149; BP diastolic 52–91; PULSE 45–96; RESP 16–18; TEMP 36.1–37.1; O2SAT 94–99
--- NOTE | 2024-12-13 02:14 | CONS_ITS ---
DATE OF SERVICE: 12/12/2024 REFERRING PHYSICIAN: Uzma Eldridge NP REASON FOR CONSULTATION: Acetaminophen overdose. HISTORY OF PRESENT ILLNESS: The patient is a pleasant 24-year-old man who was admitted to the hospital after presenting to the emergency room with abdominal pain and vomiting. Symptoms began several days prior to admission when he had developed some tooth pain in the right upper jaw, for which he took ten 500 mg tablets of acetaminophen. He had also been taking some DayQuil and NyQuil for cold symptoms. He had some right upper quadrant pain and some nausea and presented to the emergency room. He was evaluated with laboratory studies, which showed marked elevations of his transaminases with an AST of 2946 and an ALT of 2215. Total bilirubin was elevated at 3. He was given Mucomyst and admitted to the hospital. Imaging was also obtained with CT scanning and ultrasound imaging, which show no liver abnormalities. The patient does estimate he drinks approximately 6 beers on a daily basis, but has no history of jaundice or liver problems prior to this. Since admission, liver function tests have been monitored and have increased to transaminases in the 3000 to 4000 range with some improvement in his total bilirubin. INR on admission was 1.7, which has remained stable. PAST MEDICAL HISTORY: 1. Substance use with marijuana and alcohol. 2. Recent jaw pain from tooth ache. CURRENT MEDICATIONS: List is reviewed in the chart. ALLERGIES: THERE ARE NO REPORTED DRUG ALLERGIES. FAMILY HISTORY: This is reviewed with the patient and is positive for liver disease from alcohol. SOCIAL HISTORY: Alcohol and marijuana use are positive. REVIEW OF SYSTEMS: SKIN: No pruritus. HEENT: Negative. CARDIOPULMONARY: He denies shortness of breath or chest pain. GASTROINTESTINAL: As above. GENITOURINARY: Negative. NEUROPSYCHIATRIC: Negative. PHYSICAL EXAMINATION: GENERAL: Shows a pleasant male, lying comfortably in bed. VITAL SIGNS: Reviewed in the electronic medical record and are stable. SKIN: Anicteric. HEENT: Shows no scleral icterus. NECK: Without lymphadenopathy or thyromegaly. LUNGS: Clear. HEART: Shows a regular rate and rhythm. S1, S2. No murmur. ABDOMEN: Soft without focal masses or tenderness. Bowel sounds are present. No organomegaly is noted. EXTREMITIES: Without edema. LABORATORY DATA AND IMAGING STUDIES: Reviewed. IMPRESSION: Acetaminophen overdose. The patient's liver function test elevations are consistent with acetaminophen toxicity. I agree with treating him with Mucomyst and monitoring his liver function tests. If they worsen, we will consider transfer to a tertiary care center with liver transplant capability. Thanks for asking me to see him. I will follow him in the hospital with you. MD GE Marina/JOAQUÍN / [phone]
[2024-12-13 07:20] LABS: INTERNATIONAL NORM RATIO 1.6 (0.9-1.1); Prothrombin Time 18.0 SEC (10.9-12.4)
[2024-12-13 07:43] LABS: Albumin Level 4.0 g/dL (3.5-5.0); Alkaline Phosphatase 115 U/L (39-117); Anion Gap 13 (12-20); Aspartate Amino Transferase 1445 U/L (5-37); Blood Urea Nitrogen 3 mg/dL (9-16); Calcium 8.7 mg/dL (8.4-10.2); Carbon Dioxide 27 mmol/L (22-29); Chloride 101 mmol/L (96-108); Creatinine Clr Calc Pharmacy 165.4; Estimated Glomerular Filt Rate > 60; Potassium 3.5 mmol/L (3.3-5.1); Sodium 137 mmol/L (135-145); Total Protein 6.3 g/dL (6.5-8.0)
[2024-12-13 07:53] LABS: Transferrin 259 mg/dL (188-341)
[2024-12-13 08:00] LABS: Alanine Aminotransferase 2485 U/L (0-40)
[2024-12-13] MEDS: Sodium,Potassium Phosphates POWD.PACK 1 PACKET PO ×4 (09:18→20:43)
[2024-12-13] MEDS: Thiamine HCL 100 MG in 0.9 % Sodium Chloride 100 ML 202 MG IV (09:18)
[2024-12-13] MEDS: Phytonadione (Vit K1) Oral 10 MG/ML AMPUL PO (10:13)
--- NOTE | 2024-12-13 10:59 | P.PNGI_ITS ---
Subjective Subjective Date of Service: 12/13/24 Interval History: feels good tolerating diet Critical Care Time (minutes): 0 Physical Exam 2 Vital Signs: Vital Signs: Last Vital Signs Temp 97.0 F 12/13/24 10:00 Pulse 77 12/13/24 10:00 Resp 16 12/13/24 10:00 BP 120/77 12/13/24 10:00 Pulse Ox 97 12/13/24 10:00 O2 Del Method Room Air 12/13/24 10:00 BMI result Body Mass Index 18.6 GI: Other: abdomen is soft and nontender Objective Data Labs 12/12/24 05:09 12/13/24 07:05 Procedures Date of Service Date of Service: 12/13/24 Progress Note: A&P Assessment and plan (1) Elevated LFTs: Status: Acute Assessment and Plan: doing well lfts improving continue present rx d/c when stable please call with questions. Time Spent With Patient Time: Total time managing care of this patient today ____ minutes. Quality Stroke Does the patient have a stroke diagnosis?: No Reason for No Anti-thrombotic by Day Two: Contraindicated VTE Prior VTE?: No VTE Risk Level:: Medical - moderate - high VTE Device Contraindication: N/A - Device Ordered VTE Drug Contraindication: Treatment Not Indicated
--- NOTE | 2024-12-13 11:00 | P.PNIM_ITS ---
Subjective Subjective Date of Service: 12/13/24 Interval History: no N/V/abd pain Review of Systems Review of Systems: Yes all other systems are reviewed and are negative Physical Exam 2 Vital Signs: Vital Signs: Last Vital Signs Temp 97.0 F 12/13/24 10:00 Pulse 77 12/13/24 10:00 Resp 16 12/13/24 10:00 BP 120/77 12/13/24 10:00 Pulse Ox 97 12/13/24 10:00 O2 Del Method Room Air 12/13/24 10:00 BMI result Body Mass Index 18.6 Gen: in no acute distress HEENT: sclera anicteric, moist mucus membranes Neck: supple Lungs: clear to auscultation bilaterally Heart: regular rate and rhythm, no murmurs Abd: soft, non-tender, non-distended Ext: no edema Skin: warm/well-perfused Neuro: alert and oriented x3, no focal findings, no asterixis Psych: appropriate affect Objective Data Active Medications Amoxicillin (Amoxicillin 500 Mg Capsule) 500 mg PO Q8H [facility] Stop: 12/19/24 04:59 Last Admin: 12/13/24 05:03 Dose: 500 mg Documented By: HENRY Benzocaine (Benzocaine 20 % Oral Gel 9 Gm Tube) 1 appl MUCOUS MEM QID PRN; Protocol PRN Reason: Pain, Mild (Pain Scale 1-3) Last Admin: 12/12/24 12:18 Dose: 1 appl Documented By: ABHAY Folic Acid 1 mg/ Sodium (Chloride) 50.2 mls @ 100.4 mls/hr IV DAILY [facility] Last Infusion: 12/13/24 10:04 Dose: Infused Documented By: RAGHAV Thiamine HCl 100 mg/ Sodium (Chloride) 101 mls @ 202 mls/hr IV DAILY [facility] Last Infusion: 12/13/24 10:04 Dose: Infused Documented By: RAGHAV Acetylcysteine 6,000 mg/ (Dextrose) 1,030 mls @ 62.461 mls/hr IV ONCE ONE Stop: 12/13/24 15:44 Last Admin: 12/12/24 23:18 Dose: 62.46 mls/hr Documented By: HENRY Potassium Phos/Sodium Phos (Sodium,Potassium Phosphates Powd.Pack) 1 packet PO QID [facility] Last Admin: 12/13/24 09:18 Dose: 1 packet Documented By: RAGHAV Sodium Chloride (0.9 % Sodium Chloride Flush 3 Ml Syringe) 3 ml IVFLUSH QSHIFT [facility] Last Admin: 12/13/24 09:19 Dose: Not Given Documented By: RAGHAV Non-Admin Reason: IV Running Labs 12/12/24 05:09 12/13/24 07:05 Labs: Laboratory Results - last 24 hr 12/12/24 12/12/24 12/12/24 06:04 12:09 21:04 PT INR Anion Gap Estim Creat Clear Calc Estimated GFR Random Glucose Calcium Phosphorus Transferrin 259 Total Bilirubin 1.8 H 2.1 H Direct Bilirubin 0.9 H 0.9 H AST 4130 H 2649 H ALT 3080 H 2773 H Alkaline Phosphatase 80 117 Ammonia 103 H Total Protein 5.6 L 6.1 L Albumin 3.4 L 3.6 Ceruloplasmin 19 Acetaminophen < 3 12/13/24 07:05 PT 18.0 H INR 1.6 H Anion Gap 13 Estim Creat Clear Calc 165.4 Estimated GFR > 60 Random Glucose 110 Calcium 8.7 D Phosphorus 2.5 L Transferrin Total Bilirubin 1.6 H Direct Bilirubin AST 1445 H ALT 2485 H Alkaline Phosphatase 115 Ammonia Total Protein 6.3 L Albumin 4.0 Ceruloplasmin Acetaminophen Assessment and Plan (1) Accidental acetaminophen overdose: Status: Acute Plan d2, 24yo M presenting after unintentional APAP overdose unintentional APAP overdose - continue NAC IV infusion, Poison Control following, follow LFTs, transaminases improving, GI consulted coagulopathy - PO vit K, repeat INR tomorrow hypoK - repleted hypoPO4 - replete PO, recheck in AM tooth pain/infection - amoxicillin 12/12-, benzocaine, dental follow-up VTE ppx - SCDs dispo - eventual home In my clinical judgment, the patient requires continued inpatient hospitalization for the following reasons: IV NAC Total time managing care of this patient today: 35 minutes. Quality Stroke Does the patient have a stroke diagnosis?: No Reason for No Anti-thrombotic by Day Two: Contraindicated VTE Prior VTE?: No VTE Risk Level:: Medical - moderate - high VTE Device Contraindication: N/A - Device Ordered VTE Drug Contraindication: Treatment Not Indicated
[2024-12-13] MEDS: Benzocaine 20 % Oral Gel 9 GM TUBE 1 APPL MUCOUS MEM (12:24)
[2024-12-13] MEDS: ACETYLCYSTEINE IV (16:43)
[2024-12-13] MEDS: DEXTROSE 5% IV (16:43)
--- NOTE | 2024-12-14 | ECG_ITS ---
Test Reason : T-wave changes Blood Pressure : */* mmHG Vent. Rate : 63 BPM Atrial Rate : 63 BPM P-R Int : 138 ms QRS Dur : 96 ms QT Int : 400 ms P-R-T Axes : 86 107 86 degrees QTcB Int : 409 ms Poor data quality with Baseline wander Normal sinus rhythm with sinus arrhythmia Rightward axis Borderline ECG When compared with ECG of 11-Dec-2024 23:27, Poor data quality in current ECG precludes serial comparison Referred By: Jesus Lewis Electronically Signed By: TONY VICTORIA MD
[2024-12-14 03:03] VITALS: BP 100/53; PULSE 50; RESP 14; TEMP 36.6; O2SAT 99
[2024-12-14] MEDS: Sodium,Potassium Phosphates POWD.PACK 1 PACKET PO ×2 (07:29→13:03)
[2024-12-14] MEDS: Thiamine HCL 100 MG in 0.9 % Sodium Chloride 100 ML 202 MG IV (07:30)
[2024-12-14 07:43] LABS: INTERNATIONAL NORM RATIO 1.2 (0.9-1.1); Prothrombin Time 13.8 SEC (10.9-12.4)
--- NOTE | 2024-12-14 07:43 | ECG_ITS ---
Test Reason : t wave changes Blood Pressure : */* mmHG Vent. Rate : 55 BPM Atrial Rate : 55 BPM P-R Int : 134 ms QRS Dur : 104 ms QT Int : 454 ms P-R-T Axes : 36 61 60 degrees QTcB Int : 434 ms Sinus bradycardia with Sinus Arrhythmia Incomplete right bundle branch block Borderline ECG When compared with ECG of 14-Dec-2024 01:06, Incomplete right bundle branch block is now Present Nonspecific T wave abnormality, improved in Lateral leads Referred By: Doyle Jurado Electronically Signed By: TONY VICTORIA MD
[2024-12-14 08:00] VITALS: BP 123/70; PULSE 58; RESP 16; TEMP 36.4; O2SAT 100
[2024-12-14 08:09] LABS: Ammonia 67 umol/L (13-55)
[2024-12-14 08:12] LABS: Albumin Level 4.0 g/dL (3.5-5.0); Alkaline Phosphatase 113 U/L (39-117); Anion Gap 13 (12-20); Aspartate Amino Transferase 466 U/L (5-37); Blood Urea Nitrogen 5 mg/dL (9-16); Calcium 8.9 mg/dL (8.4-10.2); Carbon Dioxide 24 mmol/L (22-29); Chloride 108 mmol/L (96-108); Creatinine Clr Calc Pharmacy 176.2; Estimated Glomerular Filt Rate > 60; Potassium 4.0 mmol/L (3.3-5.1); Sodium 141 mmol/L (135-145); Total Protein 6.6 g/dL (6.5-8.0)
[2024-12-14 08:33] LABS: Alanine Aminotransferase 1713 U/L (0-40)
[2024-12-14 11:55] LABS: Ammonia 70 umol/L (13-55)
[2024-12-14 12:00] VITALS: BP 134/91; PULSE 61; RESP 16; TEMP 36.8; O2SAT 99
[2024-12-14 12:18] LABS: Alanine Aminotransferase 1780 U/L (0-40); Albumin Level 4.4 g/dL (3.5-5.0); Alkaline Phosphatase 122 U/L (39-117); Aspartate Amino Transferase 461 U/L (5-37); Total Protein 7.2 g/dL (6.5-8.0)
--- NOTE | 2024-12-14 12:50 | HO.PM.IMPN ---
Subjective Subjective Date of Service: 12/14/24 Interval History: feels well, no N/V/abd pain or AMS Review of Systems Review of Systems: Yes all other systems are reviewed and are negative Physical Exam Vital Signs: Vital Signs: Last Vital Signs Temp 97.8 F 12/14/24 03:03 Pulse 50 12/14/24 03:03 Resp 14 12/14/24 03:03 BP 100/53 L 12/14/24 03:03 Pulse Ox 99 12/14/24 03:03 O2 Del Method Room Air 12/14/24 03:03 BMI result Body Mass Index 18.6 Gen: in no acute distress HEENT: sclera anicteric, moist mucus membranes Neck: supple Lungs: clear to auscultation bilaterally Heart: regular rate and rhythm, no murmurs Abd: soft, non-tender, non-distended Ext: no edema Skin: warm/well-perfused Neuro: alert and oriented x3, no focal findings, no asterixis Psych: appropriate affect Objective Data Active Medications Amoxicillin (Amoxicillin 500 Mg Capsule) 500 mg PO Q8H [facility] Stop: 12/19/24 04:59 Last Admin: 12/14/24 04:59 Dose: 500 mg Documented By: HENRY Benzocaine (Benzocaine 20 % Oral Gel 9 Gm Tube) 1 appl MUCOUS MEM QID PRN; Protocol PRN Reason: Pain, Mild (Pain Scale 1-3) Last Admin: 12/13/24 12:24 Dose: 1 appl Documented By: RAGHAV Folic Acid 1 mg/ Sodium (Chloride) 50.2 mls @ 100.4 mls/hr IV DAILY [facility] Last Infusion: 12/14/24 08:00 Dose: Infused Documented By: RAGHAV Thiamine HCl 100 mg/ Sodium (Chloride) 101 mls @ 202 mls/hr IV DAILY [facility] Last Infusion: 12/14/24 08:00 Dose: Infused Documented By: RAGHAV Ketorolac Tromethamine (Ketorolac Tromethamine 15 Mg/Ml Vial) 15 mg IVPUSH Q6H PRN PRN Reason: pain/mod-sev Last Admin: 12/13/24 19:39 Dose: 15 mg Documented By: HENRY Potassium Phos/Sodium Phos (Sodium,Potassium Phosphates Powd.Pack) 1 packet PO QID [facility] Last Admin: 12/14/24 07:29 Dose: 1 packet Documented By: RAGHAV Sodium Chloride (0.9 % Sodium Chloride Flush 3 Ml Syringe) 3 ml IVFLUSH QSHIFT [facility] Last Admin: 12/14/24 07:30 Dose: Not Given Documented By: RAGHAV Non-Admin Reason: IV Running Labs 12/12/24 05:09 12/14/24 07:23 Labs: Laboratory Results - last 24 hr 12/14/24 12/14/24 12/14/24 07:15 07:23 11:21 Hold Purple Top SEE NOTE SEE NOTE PT 13.8 H D INR 1.2 H Anion Gap 13 Estim Creat Clear Calc 176.2 Estimated GFR > 60 Random Glucose 90 Calcium 8.9 Phosphorus 3.4 Total Bilirubin 1.0 1.0 Direct Bilirubin 0.6 H AST 466 H 461 H ALT 1713 H 1780 H Alkaline Phosphatase 113 122 H Ammonia 67 H 70 H Total Protein 6.6 7.2 Albumin 4.0 4.4 Assessment and Plan (1) Accidental acetaminophen overdose: Status: Acute Plan d3, 24yo M presenting after unintentional APAP overdose unintentional APAP overdose - off NAC as of this morning, Poison Control following, transaminases improving, GI consulted coagulopathy - INR improved after PO vit K hypoK - repleted hypoPO4 - repleted tooth pain/infection - amoxicillin 12/12-, benzocaine, dental follow-up VTE ppx - SCDs dispo - eventual home In my clinical judgment, the patient requires continued inpatient hospitalization for the following reasons: Poison Control following Total time managing care of this patient today: 35 minutes. Quality Stroke Does the patient have a stroke diagnosis?: No Reason for No Anti-thrombotic by Day Two: Contraindicated VTE Prior VTE?: No VTE Risk Level:: Medical - moderate - high VTE Device Contraindication: N/A - Device Ordered VTE Drug Contraindication: Treatment Not Indicated
--- NOTE | 2024-12-14 13:45 | MHC.RECOVRN ---
T/W met with pt. in to check in and provide support. Pt's tooth is much less painful today. He did not review literature left yet but GF did and denies any questions. I validated pt's wishes to try and do it on my own and directed him to resources in the folder that will assist him. Pt and GF denied any further concerns/questions. ACS available PRN.
--- NOTE | 2024-12-14 14:44 | P.DS_ITS ---
DS: Providers Provider Date of Service: 12/14/24 Date of admission: 12/12/24 03:12 Date of discharge: 12/14/24 Primary care physician: Unknown Physician Consults: 12/12/24 03:48 Consult to Gastroenterology Routine Consulting Provider: Jason Cline Reason for consultation: transaminitis, accidental acetaminophen OD, Daily ETOH 12/12/24 03:50 Addiction Medicine Provider Routine Consulting Provider: Addiction Covering Reason for consultation: daily alcohol use DS: Diagnosis Discharge Diagnosis (1) Accidental acetaminophen overdose: Status: Acute (2) Drug-induced liver injury: Status: Acute (3) Tooth pain: Status: Acute DS: Summary Hospital Course Hospital Course: From the history and physical by the admitting hospitalist, Juany PATEL 12/12/24: Pt is a 24 yo male with past medical history regular alcohol use 2-3 beers per day, marijuana use coming in to ED for persistent N/V, decreased urinary output. Patient initially reports that he took DayQuil and NyQuil since last Sunday through Sunday for cold-like symptoms. Those symptoms have since resolved. Patient developed tooth pain in the upper right molar area on Sunday and the pain was unbearable and patient took 10 500 mg tablets at once to relieve the pain. Patient also took DayQuil at that time as well. Patient denies taking any Motrin or other NSAIDs. Patient awakened on Sunday with excessive nausea and multiple episodes of vomiting. Patient's mother who is a nurse that works at [facility] was updated on medications that patient took and called poison control Sunday morning. Initially they were told based on patient's weight and height he could hydrate at home and recover. Patient then developed the decreased urinary output. Patient also having some mild abdominal tenderness in the right upper quadrant. Patient was brought into the emergency department for further evaluation. Patient currently denies any cold-like symptoms. In addition patient states he drinks anywhere from 2-3 beers per day and has not been able to stop. Patient has used alcohol at least 2-3 years. Patient also uses marijuana intermittently. Patient denies use of illicit drugs or IV drug abuse history. Patient denies any SI, HI, AH or VH currently. Patient denies any history of depression or anxiety. Patient was treated with Mucomyst in the ED. patient currently NPO. In ED provider's notes it states patient is not a candidate for liver transplant. Tylenol level is currently less than 3. Labs done in the ED identified a leukocytosis of 15.8, H&H 19.8 and 56.3, lactic acid 0.9. Phosphorus 1.9, total bilirubin 3.0 direct bilirubin 1.1. AST 2946 and ALT is 2215 with an alk-phos of 172. CT of the abdomen is currently pending. Per emergency department provider's calculation, patient took over 5650 mg of Tylenol total since Sunday. Patient reports that his tooth pain persists and knows that it needs to be addressed with a dentist. Patient denies any current fever, chills, nausea or vomiting. Patient is not having chest pain or shortness of breath at rest or with exertion. Patient being admitted with accidental Tylenol overdose and tooth pain/ dental infection. 24yo M presenting after unintentional APAP overdose. Admitted to the hospitalist service with Gastroenterology consult and Poison Control guidance. He was given extended infusion of N-acetylcysteine until his transaminases improved considerably. He was given vitamin K for mild coagulopathy. Ammonia level high but no asterixis and the level declined appropriately. LFTs were stable off NAC and he was discharged after clearance by Poison Control. He will see a dentist for his tooth issue and was treated with amoxicillin, benzocaine, and NSAIDs. He should repeat LFTs in 1 week, avoid alcohol and acetaminophen, and establish primary care [facility]. Time Attestation Discharge Coordination Time (in mins): 45 Quality: Safe Use of Opioids Does Pt have an Active Cancer Diagnosis on the Problem List?: No Quality: Stroke Does the patient have a stroke diagnosis?: No Physical Exam Vital Signs: Vital Signs: Last Vital Signs Temp 98.2 F 12/14/24 12:00 Pulse 61 12/14/24 12:00 Resp 16 12/14/24 12:00 BP 134/91 H 12/14/24 12:00 Pulse Ox 99 12/14/24 12:00 O2 Del Method Room Air 12/14/24 12:00 BMI result Body Mass Index 18.6 Gen: in no acute distress HEENT: sclera anicteric, moist mucus membranes Neck: supple Lungs: clear to auscultation bilaterally Heart: regular rate and rhythm, no murmurs Abd: soft, non-tender, non-distended Ext: no edema Skin: warm/well-perfused Neuro: alert and oriented x3, no focal findings, no asterixis Psych: appropriate affect DS: Data Data Completed and Pending Completed studies during hospitalization [Text1]: Laboratory Tests 12/11/24 12/11/24 12/12/24 18:54 21:57 01:51 WBC 15.8 H RBC 6.63 H Hgb 19.8 H Hct 56.3 H MCV 84.9 MCH 29.9 MCHC 35.2 RDW 11.9 Plt Count 196 MPV 11.0 Immature Gran % (Auto) 0.5 H Neut % (Auto) 87.9 H Lymph % (Auto) 4.8 L [place] % (Auto) 6.0 Eos % (Auto) 0.2 Baso % (Auto) 0.6 Lymph # (Auto) 0.8 L [place] # (Auto) 0.9 Eos # (Auto) 0.0 Baso # (Auto) 0.1 Abs Immat Gran (auto) 0.08 H Absolute Neuts (auto) 13.9 H Absolute Nucleated RBC 0.000 Nucleated RBC % (auto) 0.0 Hold Purple Top PT 19.8 H INR 1.7 H APTT O2 Saturation ABG pH at Pt Temp ABG pCO2 at Pt Temp ABG pO2 at Pt Temp ABG HCO3 ABG Base Excess (Actual) Sodium 136 Potassium 3.9 Chloride 97 Carbon Dioxide 25 Anion Gap 18 BUN 9 Creatinine 0.74 Estim Creat Clear Calc 135.7 Estimated GFR > 60 Random Glucose 108 Lactic Acid 0.9 Calcium 9.7 Phosphorus 1.9 L Magnesium Transferrin Ferritin Total Bilirubin 3.0 H Direct Bilirubin 1.1 H GGT AST 2946 H ALT 2215 H Alkaline Phosphatase 172 H Ammonia Total Protein 8.0 Albumin 4.9 Ceruloplasmin Urine Color Urine Appearance Urine pH Ur Specific [place] Urine Protein Urine Glucose (UA) Urine Ketones Urine Blood Urine Nitrite Ur Leukocyte Esterase Urine RBC Urine WBC Ur Squamous Epith Cells Urine Bacteria Hyaline Casts Salicylates < 5.0 L < 5.0 L Urine Opiates Screen Ur Buprenorphine Scrn Ur Oxycodone Screen Urine Methadone Screen Urine Fentanyl Screen Acetaminophen < 3 < 3 Ur Barbiturates Screen Ur Phencyclidine Scrn Ur Amphetamines Screen U Benzodiazepines Scrn Urine Cocaine Screen U Marijuana (THC) Screen Ethyl Alcohol < 10 Hepatitis A IgM Ab Nonreactive Hep Bs Antigen Negative Hep Bs Antibody NONREACTIVE Hep B Core Total Ab Nonreactive Hepatitis C Ab (EIA) Nonreactive 12/12/24 12/12/24 12/12/24 02:09 02:37 02:38 WBC RBC Hgb Hct MCV MCH MCHC RDW Plt Count MPV Immature Gran % (Auto) Neut % (Auto) Lymph % (Auto) [place] % (Auto) Eos % (Auto) Baso % (Auto) Lymph # (Auto) [place] # (Auto) Eos # (Auto) Baso # (Auto) Abs Immat Gran (auto) Absolute Neuts (auto) Absolute Nucleated RBC Nucleated RBC % (auto) Hold Purple Top PT INR APTT O2 Saturation 98.0 ABG pH at Pt Temp 7.46 H ABG pCO2 at Pt Temp 35 ABG pO2 at Pt Temp 96 ABG HCO3 25 ABG Base Excess (Actual) 2.3 Sodium Potassium Chloride Carbon Dioxide Anion Gap BUN Creatinine Estim Creat Clear Calc Estimated GFR Random Glucose Lactic Acid Calcium Phosphorus Magnesium Transferrin Ferritin Total Bilirubin Direct Bilirubin GGT AST ALT Alkaline Phosphatase Ammonia Total Protein Albumin Ceruloplasmin Urine Color Dark Yellow Urine Appearance Clear Urine pH 6.0 Ur Specific [place] 1.020 Urine Protein 30 (1+) H Urine Glucose (UA) Negative Urine Ketones 15 Urine Blood Negative Urine Nitrite Negative Ur Leukocyte Esterase Negative Urine RBC 0-2 Urine WBC 0-5 Ur Squamous Epith Cells 0-2 Urine Bacteria None Seen Hyaline Casts 0-2 Salicylates Urine Opiates Screen POSITIVE H Ur Buprenorphine Scrn Not Detected Ur Oxycodone Screen Not Detected Urine Methadone Screen Not Detected Urine Fentanyl Screen Not Detected Acetaminophen Cancelled Ur Barbiturates Screen Not Detected Ur Phencyclidine Scrn Not Detected Ur Amphetamines Screen Not Detected U Benzodiazepines Scrn Not Detected Urine Cocaine Screen Not Detected U Marijuana (THC) Screen POSITIVE H Ethyl Alcohol Hepatitis A IgM Ab Hep Bs Antigen Hep Bs Antibody Hep B Core Total Ab Hepatitis C Ab (EIA) 12/12/24 12/12/24 12/12/24 05:09 06:04 12:09 WBC 10.6 RBC 5.88 H Hgb 17.3 Hct 51.3 MCV 87.2 MCH 29.4 MCHC 33.7 RDW 11.8 Plt Count 167 MPV 10.5 Immature Gran % (Auto) 0.4 Neut % (Auto) 85.7 H Lymph % (Auto) 8.2 L [place] % (Auto) 5.0 Eos % (Auto) 0.2 Baso % (Auto) 0.5 Lymph # (Auto) 0.9 L [place] # (Auto) 0.5 Eos # (Auto) 0.0 Baso # (Auto) 0.1 Abs Immat Gran (auto) 0.04 H Absolute Neuts (auto) 9.1 H Absolute Nucleated RBC 0.000 Nucleated RBC % (auto) 0.0 Hold Purple Top PT 20.0 H INR 1.7 H APTT 30.0 O2 Saturation ABG pH at Pt Temp ABG pCO2 at Pt Temp ABG pO2 at Pt Temp ABG HCO3 ABG Base Excess (Actual) Sodium 136 Potassium 3.2 L Chloride 102 Carbon Dioxide 26 Anion Gap 11 L BUN 9 Creatinine 0.66 Estim Creat Clear Calc 152.2 Estimated GFR > 60 Random Glucose 149 H Lactic Acid 1.8 Calcium 8.2 L D Phosphorus 2.0 L Magnesium 2.0 Transferrin 259 Ferritin > 1676 H Total Bilirubin 2.0 H 1.8 H Direct Bilirubin 0.9 H GGT 148 H AST 4654 H 4130 H ALT 3011 H 3080 H Alkaline Phosphatase 115 80 Ammonia 105 H 103 H Total Protein 5.9 L 5.6 L Albumin 3.6 3.4 L Ceruloplasmin 19 Urine Color Urine Appearance Urine pH Ur Specific [place] Urine Protein Urine Glucose (UA) Urine Ketones Urine Blood Urine Nitrite Ur Leukocyte Esterase Urine RBC Urine WBC Ur Squamous Epith Cells Urine Bacteria Hyaline Casts Salicylates Urine Opiates Screen Ur Buprenorphine Scrn Ur Oxycodone Screen Urine Methadone Screen Urine Fentanyl Screen Acetaminophen Ur Barbiturates Screen Ur Phencyclidine Scrn Ur Amphetamines Screen U Benzodiazepines Scrn Urine Cocaine Screen U Marijuana (THC) Screen Ethyl Alcohol Hepatitis A IgM Ab Hep Bs Antigen Hep Bs Antibody Hep B Core Total Ab Hepatitis C Ab (EIA) 12/12/24 12/13/24 12/14/24 21:04 07:05 07:15 WBC RBC Hgb Hct MCV MCH MCHC RDW Plt Count MPV Immature Gran % (Auto) Neut % (Auto) Lymph % (Auto) [place] % (Auto) Eos % (Auto) Baso % (Auto) Lymph # (Auto) [place] # (Auto) Eos # (Auto) Baso # (Auto) Abs Immat Gran (auto) Absolute Neuts (auto) Absolute Nucleated RBC Nucleated RBC % (auto) Hold Purple Top SEE NOTE PT 18.0 H INR 1.6 H APTT O2 Saturation ABG pH at Pt Temp ABG pCO2 at Pt Temp ABG pO2 at Pt Temp ABG HCO3 ABG Base Excess (Actual) Sodium 137 Potassium 3.5 Chloride 101 Carbon Dioxide 27 Anion Gap 13 BUN 3 L Creatinine 0.65 Estim Creat Clear Calc 165.4 Estimated GFR > 60 Random Glucose 110 Lactic Acid Calcium 8.7 D Phosphorus 2.5 L Magnesium Transferrin Ferritin Total Bilirubin 2.1 H 1.6 H Direct Bilirubin 0.9 H GGT AST 2649 H 1445 H ALT 2773 H 2485 H Alkaline Phosphatase 117 115 Ammonia Total Protein 6.1 L 6.3 L Albumin 3.6 4.0 Ceruloplasmin Urine Color Urine Appearance Urine pH Ur Specific [place] Urine Protein Urine Glucose (UA) Urine Ketones Urine Blood Urine Nitrite Ur Leukocyte Esterase Urine RBC Urine WBC Ur Squamous Epith Cells Urine Bacteria Hyaline Casts Salicylates Urine Opiates Screen Ur Buprenorphine Scrn Ur Oxycodone Screen Urine Methadone Screen Urine Fentanyl Screen Acetaminophen < 3 Ur Barbiturates Screen Ur Phencyclidine Scrn Ur Amphetamines Screen U Benzodiazepines Scrn Urine Cocaine Screen U Marijuana (THC) Screen Ethyl Alcohol Hepatitis A IgM Ab Hep Bs Antigen Hep Bs Antibody Hep B Core Total Ab Hepatitis C Ab (EIA) 12/14/24 12/14/24 07:23 11:21 WBC RBC Hgb Hct MCV MCH MCHC RDW Plt Count MPV Immature Gran % (Auto) Neut % (Auto) Lymph % (Auto) [place] % (Auto) Eos % (Auto) Baso % (Auto) Lymph # (Auto) [place] # (Auto) Eos # (Auto) Baso # (Auto) Abs Immat Gran (auto) Absolute Neuts (auto) Absolute Nucleated RBC Nucleated RBC % (auto) Hold Purple Top SEE NOTE PT 13.8 H D INR 1.2 H APTT O2 Saturation ABG pH at Pt Temp ABG pCO2 at Pt Temp ABG pO2 at Pt Temp ABG HCO3 ABG Base Excess (Actual) Sodium 141 Potassium 4.0 Chloride 108 Carbon Dioxide 24 Anion Gap 13 BUN 5 L Creatinine 0.61 Estim Creat Clear Calc 176.2 Estimated GFR > 60 Random Glucose 90 Lactic Acid Calcium 8.9 Phosphorus 3.4 Magnesium Transferrin Ferritin Total Bilirubin 1.0 1.0 Direct Bilirubin 0.6 H GGT AST 466 H 461 H ALT 1713 H 1780 H Alkaline Phosphatase 113 122 H Ammonia 67 H 70 H Total Protein 6.6 7.2 Albumin 4.0 4.4 Ceruloplasmin Urine Color Urine Appearance Urine pH Ur Specific [place] Urine Protein Urine Glucose (UA) Urine Ketones Urine Blood Urine Nitrite Ur Leukocyte Esterase Urine RBC Urine WBC Ur Squamous Epith Cells Urine Bacteria Hyaline Casts Salicylates Urine Opiates Screen Ur Buprenorphine Scrn Ur Oxycodone Screen Urine Methadone Screen Urine Fentanyl Screen Acetaminophen Ur Barbiturates Screen Ur Phencyclidine Scrn Ur Amphetamines Screen U Benzodiazepines Scrn Urine Cocaine Screen U Marijuana (THC) Screen Ethyl Alcohol Hepatitis A IgM Ab Hep Bs Antigen Hep Bs Antibody Hep B Core Total Ab Hepatitis C Ab (EIA) Discharge Plan Discharge Anticipated Discharge Date/Time: 12/14/24 14:41 Patient Disposition: Home, Self-Care Discharge Diagnosis: accidental acetaminophen overdose dental pain Referrals: [facility] [place] Primary [facility], [facility] [Provider Group, Internal Medicine] - 1 Week Physician,Heather Casey [Primary Care Provider, Medical] - 1 Week Discharge Medications: New amoxicillin 500 mg Capsule 500 mg PO Q8H Qty: 15 0RF Anbesol (benzocaine) Max Str 20 % Gel 1 appl mucous membrane QID PRN (Reason: Pain, Mild (Pain Scale 1-3)) Qty: 30 0RF Protocol: Apply to: Apply to: Right upper dentition Discharge Orders: Discharge Order (Routine); Ordered 12/14/24 Ordered By: Doyle Jurado Diet: Advance to usual diet Activity on Discharge: As tolerated Stand Alone Forms: Patient Portal Discharge page, Work/School Release Print Language: Albanian Other Ambulatory Orders: Comprehensive Met. Panel (Routine) Timeframe: 1 Week Facility: [facility] - Location: Laboratory Ordered By: Doyle Jurado Care Plan Goals: liver health Health Concerns: accidental acetaminophen overdose dental pain Plan of Treatment: amoxicillin 500 mg every 8 hr for 5 days call a dentist for an appointment [facility] use benzocaine gel and ibuprofen (200 to 600 mg every 4-8 hr as needed for pain, maximum 1800 mg/d) for pain repeat labs [CMP] in 1 week avoid alcohol avoid acetaminophen establish primary care [facility] Return to the hospital if you experience recurrent or worsening symptoms. Assessment: See Discharge Summary.
--- NOTE | 2024-12-14 14:52 | MHC.CM.PN ---
Patient medically cleared for dc home self care via private transport
[2024-12-17 10:40] LABS: Anti Nuclear Antibody Screen NEGATIVE (NEGATIVE)
== END 2024-12-14 16:37 | disposition home or self-care (01) | DRG 812 ==
LOC: HO.ED 12-12 02:49 → HO.EDOVER 12-12 03:42 → HO.IMC 12-12 19:32
PROVIDERS: Nurse Practitioner Family; Registered Nurse Emergency; Admitting Provider Internal Medicine; Emergency Provider Emergency Medicine; Visit Provider Family Medicine
DX: T39.1X1A Poisoning by 4-Aminophenol derivatives, accidental (unintentional), initial encounter (principal); D68.9 Coagulation defect, unspecified; E83.39 Other disorders of phosphorus metabolism; E87.6 Hypokalemia; K04.7 Periapical abscess without sinus; F10.10 Alcohol abuse, uncomplicated
CPT/HCPCS: 36415; 74177; 76705; 80048; 80053; 80076; 80143; 80179; 80307; 81001; 81003; 82140; 82390; 82728; 82803; 82977; 83605; 83735; 84100; 84466; 85025; 85610; 85730; 86015; 86038; 86381; 86704; 86706; 86709; 86803; 87340; 93005; 99285; J0132; J0737; J1808; J1885; J2270; J2405; J3360; J3411; Q9967; S9485

== ENCOUNTER → 2024-12-11 21:36 | Outpatient (BNV) | payer OTHER, SELFPAY | PROVIDERS: Emergency Provider Emergency Medicine; Visit Provider General Practice | DX: R10.84 Generalized abdominal pain (principal); R11.10 Vomiting, unspecified | CPT/HCPCS: 76705 ==

== ENCOUNTER → 2024-12-11 23:27 | Outpatient (BNV) | payer OTHER, SELFPAY | PROVIDERS: Admitting Provider Internal Medicine; Emergency Provider Emergency Medicine; Visit Provider Internal Medicine Cardiovascular Disease | DX: Z13.6 Encounter for screening for cardiovascular disorders (principal) | CPT/HCPCS: 93010 ==

== ENCOUNTER → 2024-12-12 00:01 | Outpatient (BNV) | payer OTHER, SELFPAY | PROVIDERS: Admitting Provider Internal Medicine; Emergency Provider Emergency Medicine; Visit Provider General Practice | DX: R10.84 Generalized abdominal pain (principal) | CPT/HCPCS: 74177 ==

== ENCOUNTER 2024-12-12 03:12 | Outpatient (BNV) | payer OTHER, SELFPAY | END 2024-12-14 01:06 | PROVIDERS: Admitting Provider Internal Medicine; Emergency Provider Emergency Medicine; Visit Provider Internal Medicine Cardiovascular Disease | DX: Z13.6 Encounter for screening for cardiovascular disorders (principal); I45.10 Unspecified right bundle-branch block; I49.9 Cardiac arrhythmia, unspecified; R00.1 Bradycardia, unspecified | CPT/HCPCS: 93010 ==

== ENCOUNTER → 2024-12-12 03:12 | Outpatient (BNV) | payer OTHER, SELFPAY | PROVIDERS: Admitting Provider Internal Medicine; Emergency Provider Emergency Medicine; Visit Provider Nurse Practitioner Family | DX: T39.1X1A Poisoning by 4-Aminophenol derivatives, accidental (unintentional), initial encounter (principal); K71.9 Toxic liver disease, unspecified; K08.89 Other specified disorders of teeth and supporting structures | CPT/HCPCS: 99223; 99232; 99239; 99499 ==